=== PATIENT | female | born 1930 | race Caucasian/White ===

== ENCOUNTER 2019-01-03 08:44 | Inpatient (IN) | payer MEDICARE, OTHER ==
[~2019-01-03] VITALS: Ht 160 cm; Wt 100.4 kg
--- OUTSIDE RECORDS SUMMARY | 2019-01-03 08:47 | XMS REPORT ---
[facility] [place] Address Unknown Phone Unavailable Care Team Providers Care Hand Printed Circuit Board Assembler Name Role Phone Unavailable Unavailable Payers Payer Name Policy Type Policy Number Effective Date Expiration Date Problems This patient has no known problems. Allergies, Adverse Reactions, Alerts Allergy Name Allergy Type Status Severity Reaction(s) Onset Date Inactive Date Treating Clinician Comments diltiazem DA Active SV 2018-12-10 00:00:00 Medications This patient has no known medications. Results Test Description Test Time Test Comments Text Results Atomic Results Result Comments GLUBED 2018-12-18 11:59:00 GLUBED (test code=GLUBED) 146 mg/dL 74-106 Performed by certified protective signal operator at [facility] BASIC METABOLIC [id number] 10:40:00* Test Item Value Reference Range Comments SODIUM (test code=NA) 139 mmol/L 136-145 POTASSIUM (test code=K) 3.9 mmol/L 3.5-5.1 CHLORIDE (test code=CL) 105.0 mmol/L 98-107 CARBON DIOXIDE (test code=CO2) 25.0 mmol/L 21-32 ANION GAP (test code=GAP) 12.9 10-20 GLUCOSE (test code=GLU) 133 mg/dL 74-106 BLOOD UREA NITROGEN (test code=BUN) 29 mg/dL 7-18 GLOMERULAR FILTRATION RATE (test code=GFR) 28 mL/min >=60 Estimated GFR by using Modified MDRD formula.Chronic kidney disease is defined as either kidney damageor GFR <60 mL/min/1.73 m2 for >3 months. CREATININE (test code=CREAT) 1.70 mg/dL 0.55-1.02 Note change in reference range due to change in reagent. BUN/CREATININE RATIO (test code=BUN/CREA) 16.9 10-20 CALCIUM (test code=CA) 9.1 mg/dL 8.5-10.1 BASIC METABOLIC [id number] 10:36:00* Test Item Value Reference Range Comments SODIUM (test code=NA) 139 mmol/L 136-145 POTASSIUM (test code=K) 3.9 mmol/L 3.5-5.1 CHLORIDE (test code=CL) 105.0 mmol/L 98-107 CARBON DIOXIDE (test code=CO2) mmol/L 21-32 ANION GAP (test code=GAP) 10-20 GLUCOSE (test code=GLU) mg/dL 74-106 BLOOD UREA NITROGEN (test code=BUN) mg/dL 7-18 GLOMERULAR FILTRATION RATE (test code=GFR) mL/min >=60 CREATININE (test code=CREAT) mg/dL 0.55-1.02 BUN/CREATININE RATIO (test code=BUN/CREA) 10-20 CALCIUM (test code=CA) mg/dL 8.5-10.1 [id number] 08:02:00* Test Item Value Reference Range Comments GLUBED (test code=GLUBED) 105 mg/dL 74-106 Performed by certified protective signal operator at [facility] [id number] 19:49:00* Test Item Value Reference Range Comments GLUBED (test code=GLUBED) 183 mg/dL 74-106 Performed by certified protective signal operator at [facility] [id number] 16:10:00* Test Item Value Reference Range Comments GLUBED (test code=GLUBED) 168 mg/dL 74-106 Performed by certified protective signal operator at [facility] [id number] 11:32:00* Test Item Value Reference Range Comments GLUBED (test code=GLUBED) 126 mg/dL 74-106 Performed by certified protective signal operator at [facility] [id number] 08:14:00* Test Item Value Reference Range Comments GLUBED (test code=GLUBED) 109 mg/dL 74-106 Performed by certified protective signal operator at [facility] BASIC METABOLIC [id number] 05:54:00* Test Item Value Reference Range Comments SODIUM (test code=NA) 137 mmol/L 136-145 POTASSIUM (test code=K) 4.1 mmol/L 3.5-5.1 CHLORIDE (test code=CL) 104.0 mmol/L 98-107 CARBON DIOXIDE (test code=CO2) 25.0 mmol/L 21-32 ANION GAP (test code=GAP) 12.1 10-20 GLUCOSE (test code=GLU) 137 mg/dL 74-106 BLOOD UREA NITROGEN (test code=BUN) 31 mg/dL 7-18 GLOMERULAR FILTRATION RATE (test code=GFR) 25 mL/min >=60 Estimated GFR by using Modified MDRD formula.Chronic kidney disease is defined as either kidney damageor GFR <60 mL/min/1.73 m2 for >3 months. CREATININE (test code=CREAT) 1.90 mg/dL 0.55-1.02 Note change in reference range due to change in reagent. BUN/CREATININE RATIO (test code=BUN/CREA) 16.1 10-20 CALCIUM (test code=CA) 8.7 mg/dL 8.5-10.1 BASIC METABOLIC [id number] 05:42:00* Test Item Value Reference Range Comments SODIUM (test code=NA) 137 mmol/L 136-145 POTASSIUM (test code=K) 4.1 mmol/L 3.5-5.1 CHLORIDE (test code=CL) 104.0 mmol/L 98-107 CARBON DIOXIDE (test code=CO2) mmol/L 21-32 ANION GAP (test code=GAP) 10-20 GLUCOSE (test code=GLU) mg/dL 74-106 BLOOD UREA NITROGEN (test code=BUN) mg/dL 7-18 GLOMERULAR FILTRATION RATE (test code=GFR) mL/min >=60 CREATININE (test code=CREAT) mg/dL 0.55-1.02 BUN/CREATININE RATIO (test code=BUN/CREA) 10-20 CALCIUM (test code=CA) mg/dL 8.5-10.1 [id number] 21:03:00* Test Item Value Reference Range Comments GLUBED (test code=GLUBED) 137 mg/dL 74-106 Performed by certified protective signal operator at [facility] [id number] 17:04:00* Test Item Value Reference Range Comments GLUBED (test code=GLUBED) 103 mg/dL 74-106 Performed by certified protective signal operator at [facility] [id number] 12:26:00* Test Item Value Reference Range Comments GLUBED (test code=GLUBED) 125 mg/dL 74-106 Performed by certified protective signal operator at [facility] [id number] 08:14:00* Test Item Value Reference Range Comments GLUBED (test code=GLUBED) 103 mg/dL 74-106 Performed by certified protective signal operator at [facility] BLOOD UREA [id number] 05:17:00* Test Item Value Reference Range Comments BLOOD UREA NITROGEN (test code=BUN) 32 mg/dL 718 [id number] 05:17:00* Test Item Value Reference Range Comments CREATININE (test code=CREAT) 2.10 mg/dL 0.55-1.02 Note change in reference range due to change in reagent. [id number] 20:44:00* Test Item Value Reference Range Comments GLUBED (test code=GLUBED) 143 mg/dL 74-106 Performed by certified protective signal operator at [facility] [id number] 17:23:00* Test Item Value Reference Range Comments GLUBED (test code=GLUBED) 116 mg/dL 74-106 Performed by certified protective signal operator at [facility] [id number] 12:16:00* Test Item Value Reference Range Comments GLUBED (test code=GLUBED) 168 mg/dL 74-106 Performed by certified protective signal operator at [facility] [id number] 08:35:00* Test Item Value Reference Range Comments GLUBED (test code=GLUBED) 104 mg/dL 74-106 Performed by certified protective signal operator at [facility] PROTHROMBIN [id number] 06:43:00* Test Item Value Reference Range Comments PROTHROMBIN TIME PATIENT (test code=PTP) 13.4 seconds 9.0-14.0 INTERNATIONAL NORMAL RATIO (test code=INR) 1.1 0.8-1.2 The therapeutic range for oral anticoagulant therapy formost indications is an international normalized ratio (INR)of between 2.0 and 3.0. The recommended therapeutic INRrange for various clinical situations is listed below: Clinical Situation INR range Pulmonary e mbolism treatment (2.0-3.0)Venous thrombosis treatmentVenous thrombosis prophylaxis (high risk surgery)Prevention of systemic embolism from: Acute myocardial infarction Valvular heart disease Atrial fibrillation Mechanical prosthetic heart valves (2.5-3.5) IS PATIENT ON ANTICOAGULANTS? YLIST ANTICOAGULANTS COUMADINCBC W/AUTO DIFF 2018-12-15 06:41:00* Test Item Value Reference Range Comments WHITE BLOOD CELL (test code=WBC) 8.1 K/mm3 4.5-12.5 RED BLOOD CELL (test code=RBC) 3.72 mill/mm3 3.7-5.2 HEMOGLOBIN (test code=HGB) 10.1 gram/dL 11.5-15.5 HEMATOCRIT (test code=HCT) 33.2 % 36.0-46.0 MEAN CELL VOLUME (test code=MCV) 89.2 fL 80-98 MEAN CELL HGB (test code=MCH) 27.2 picogram 27.0-33.0 MEAN CELL HGB CONCETRATION (test code=MCHC) 30.4 gram/dL 33.0-36.0 RED CELL DISTRIBUTION WIDTH (test code=RDW) 16.3 % 11.6-16.2 RED CELL DISTRIBUTION WIDTH SD (test code=RDW-SD) 52.2 fL 37.0-51.0 PLATELET COUNT (test code=PLT) 212 K/mm3 150-450 MEAN PLATELET VOLUME (test code=MPV) 9.9 fL 6.7-11.0 NEUTROPHIL % (test code=NT%) 63.5 % 39.0-69.0 IMMATURE GRANULOCYTE % (test code=IG%) 1.1 % 0.0-5.0 LYMPHOCYTE % (test code=LY%) 17.6 % 25.0-55.0 MONOCYTE % (test code=MO%) 15.2 % 0.0-10.0 EOSINOPHIL % (test code=EO%) 1.9 % 0.0-5.0 BASOPHIL % (test code=BA%) 0.7 % 0.0-1.0 NUCLEATED RBC % (test code=NRBC%) 0.0 % 0-0 NEUTROPHIL # (test code=NT#) 5.13 K/mm3 1.8-7.7 IMMATURE GRANULOCYTE # (test code=IG#) 0.09 x10 3/uL 0-0.03 LYMPHOCYTE # (test code=LY#) 1.42 K/mm3 1.0-5.0 MONOCYTE # (test code=MO#) 1.23 K/mm3 0-0.8 EOSINOPHIL # (test code=EO#) 0.15 K/mm3 0.0-0.5 BASOPHIL # (test code=BA#) 0.06 K/mm3 0.0-0.2 NUCLEATED RBC # (test code=NRBC#) 0.00 K/mm3 0.0-0.1 MANUAL DIFF REQUIRED (test code=MDIFF) NO BASIC METABOLIC [id number] 06:21:00* Test Item Value Reference Range Comments SODIUM (test code=NA) 137 mmol/L 136-145 POTASSIUM (test code=K) 3.9 mmol/L 3.5-5.1 CHLORIDE (test code=CL) 102.0 mmol/L 98-107 CARBON DIOXIDE (test code=CO2) 27.0 mmol/L 21-32 ANION GAP (test code=GAP) 11.9 10-20 GLUCOSE (test code=GLU) 107 mg/dL 74-106 BLOOD UREA NITROGEN (test code=BUN) 36 mg/dL 7-18 GLOMERULAR FILTRATION RATE (test code=GFR) 25 mL/min >=60 Estimated GFR by using Modified MDRD formula.Chronic kidney disease is defined as either kidney damageor GFR <60 mL/min/1.73 m2 for >3 months. CREATININE (test code=CREAT) 1.90 mg/dL 0.55-1.02 Note change in reference range due to change in reagent. BUN/CREATININE RATIO (test code=BUN/CREA) 19.3 10-20 CALCIUM (test code=CA) 8.7 mg/dL 8.5-10.1 BASIC METABOLIC [id number] 06:15:00* Test Item Value Reference Range Comments SODIUM (test code=NA) 137 mmol/L 136-145 POTASSIUM (test code=K) 3.9 mmol/L 3.5-5.1 CHLORIDE (test code=CL) 102.0 mmol/L 98-107 CARBON DIOXIDE (test code=CO2) mmol/L 21-32 ANION GAP (test code=GAP) 10-20 GLUCOSE (test code=GLU) mg/dL 74-106 BLOOD UREA NITROGEN (test code=BUN) mg/dL 7-18 GLOMERULAR FILTRATION RATE (test code=GFR) mL/min >=60 CREATININE (test code=CREAT) mg/dL 0.55-1.02 BUN/CREATININE RATIO (test code=BUN/CREA) 10-20 CALCIUM (test code=CA) mg/dL 8.5-10.1 [id number] 21:18:00* Test Item Value Reference Range Comments GLUBED (test code=GLUBED) 175 mg/dL 74-106 Performed by certified protective signal operator at [facility] [id number] 16:25:00* Test Item Value Reference Range Comments GLUBED (test code=GLUBED) 118 mg/dL 74-106 Performed by certified protective signal operator at [facility] [id number] 12:18:00* Test Item Value Reference Range Comments GLUBED (test code=GLUBED) 100 mg/dL 74-106 Performed by certified protective signal operator at [facility] [id number] 08:18:00* Test Item Value Reference Range Comments GLUBED (test code=GLUBED) 94 mg/dL 74-106 Performed by certified protective signal operator at [facility] PROTHROMBIN [id number] 06:04:00* Test Item Value Reference Range Comments PROTHROMBIN TIME PATIENT (test code=PTP) 15.9 seconds 9.0-14.0 INTERNATIONAL NORMAL RATIO (test code=INR) 1.3 0.8-1.2 The therapeutic range for oral anticoagulant therapy formost indications is an international normalized ratio (INR)of between 2.0 and 3.0. The recommended therapeutic INRrange for various clinical situations is listed below: Clinical Situation INR range Pulmonary e mbolism treatment (2.0-3.0)Venous thrombosis treatmentVenous thrombosis prophylaxis (high risk surgery)Prevention of systemic embolism from: Acute myocardial infarction Valvular heart disease Atrial fibrillation Mechanical prosthetic heart valves (2.5-3.5) IS PATIENT ON ANTICOAGULANTS? YLIST ANTICOAGULANTS COUMADINCOMPREHENSIVE METABOLIC [id number] 06:04:00* Test Item Value Reference Range Comments SODIUM (test code=NA) 139 mmol/L 136-145 POTASSIUM (test code=K) 4.0 mmol/L 3.5-5.1 CHLORIDE (test code=CL) 106.0 mmol/L 98-107 CARBON DIOXIDE (test code=CO2) 24.0 mmol/L 21-32 ANION GAP (test code=GAP) 13.0 10-20 GLUCOSE (test code=GLU) 99 mg/dL 74-106 BLOOD UREA NITROGEN (test code=BUN) 31 mg/dL 7-18 GLOMERULAR FILTRATION RATE (test code=GFR) 30 mL/min >=60 Estimated GFR by using Modified MDRD formula.Chronic kidney disease is defined as either kidney damageor GFR <60 mL/min/1.73 m2 for >3 months. CREATININE (test code=CREAT) 1.60 mg/dL 0.55-1.02 Note change in reference range due to change in reagent. BUN/CREATININE RATIO (test code=BUN/CREA) 18.9 10-20 TOTAL PROTEIN (test code=PROT) 5.8 gram/dL 6.4-8.2 ALBUMIN (test code=ALB) 2.4 g/dL 3.4-5.0 GLOBULIN (test code=GLOB) 3.4 gram/dL 2.7-4.2 ALBUMIN/GLOBULIN RATIO (test code=A/G) 0.7 0.75-1.50 CALCIUM (test code=CA) 8.4 mg/dL 8.5-10.1 BILIRUBIN TOTAL (test code=BILT) 0.50 mg/dL 0.0-1.0 SGOT/AST (test code=AST) 25 IUnit/L 15-37 SGPT/ALT (test code=ALT) 13 IUnit/L 12-78 ALKALINE PHOSPHATASE TOTAL (test code=ALKP) 112 IUnit/L 45-117 Note change in reference range due to change in reagent. CBC W/AUTO [id number] 05:56:00* Test Item Value Reference Range Comments WHITE BLOOD CELL (test code=WBC) 6.9 K/mm3 4.5-12.5 RED BLOOD CELL (test code=RBC) 3.65 mill/mm3 3.7-5.2 HEMOGLOBIN (test code=HGB) 10.1 gram/dL 11.5-15.5 HEMATOCRIT (test code=HCT) 32.3 % 36.0-46.0 MEAN CELL VOLUME (test code=MCV) 88.5 fL 80-98 MEAN CELL HGB (test code=MCH) 27.7 picogram 27.0-33.0 MEAN CELL HGB CONCETRATION (test code=MCHC) 31.3 gram/dL 33.0-36.0 RED CELL DISTRIBUTION WIDTH (test code=RDW) 16.2 % 11.6-16.2 RED CELL DISTRIBUTION WIDTH SD (test code=RDW-SD) 52.6 fL 37.0-51.0 PLATELET COUNT (test code=PLT) 201 K/mm3 150-450 MEAN PLATELET VOLUME (test code=MPV) 10.0 fL 6.7-11.0 NEUTROPHIL % (test code=NT%) 60.2 % 39.0-69.0 IMMATURE GRANULOCYTE % (test code=IG%) 0.7 % 0.0-5.0 LYMPHOCYTE % (test code=LY%) 22.4 % 25.0-55.0 MONOCYTE % (test code=MO%) 13.5 % 0.0-10.0 EOSINOPHIL % (test code=EO%) 2.6 % 0.0-5.0 BASOPHIL % (test code=BA%) 0.6 % 0.0-1.0 NUCLEATED RBC % (test code=NRBC%) 0.0 % 0-0 NEUTROPHIL # (test code=NT#) 4.13 K/mm3 1.8-7.7 IMMATURE GRANULOCYTE # (test code=IG#) 0.05 x10 3/uL 0-0.03 LYMPHOCYTE # (test code=LY#) 1.54 K/mm3 1.0-5.0 MONOCYTE # (test code=MO#) 0.93 K/mm3 0-0.8 EOSINOPHIL # (test code=EO#) 0.18 K/mm3 0.0-0.5 BASOPHIL # (test code=BA#) 0.04 K/mm3 0.0-0.2 NUCLEATED RBC # (test code=NRBC#) 0.00 K/mm3 0.0-0.1 MANUAL DIFF REQUIRED (test code=MDIFF) NO COMPREHENSIVE METABOLIC [id number] 05:54:00* Test Item Value Reference Range Comments SODIUM (test code=NA) 139 mmol/L 136-145 POTASSIUM (test code=K) 4.0 mmol/L 3.5-5.1 CHLORIDE (test code=CL) 106.0 mmol/L 98-107 CARBON DIOXIDE (test code=CO2) mmol/L 21-32 ANION GAP (test code=GAP) 10-20 GLUCOSE (test code=GLU) mg/dL 74-106 BLOOD UREA NITROGEN (test code=BUN) mg/dL 7-18 GLOMERULAR FILTRATION RATE (test code=GFR) mL/min >=60 CREATININE (test code=CREAT) mg/dL 0.55-1.02 BUN/CREATININE RATIO (test code=BUN/CREA) 10-20 TOTAL PROTEIN (test code=PROT) gram/dL 6.4-8.2 ALBUMIN (test code=ALB) g/dL 3.4-5.0 GLOBULIN (test code=GLOB) gram/dL 2.7-4.2 ALBUMIN/GLOBULIN RATIO (test code=A/G) 0.75-1.50 CALCIUM (test code=CA) mg/dL 8.5-10.1 BILIRUBIN TOTAL (test code=BILT) mg/dL 0.0-1.0 SGOT/AST (test code=AST) IUnit/L 15-37 SGPT/ALT (test code=ALT) IUnit/L 12-78 ALKALINE PHOSPHATASE TOTAL (test code=ALKP) IUnit/L 45-117 [id number] 20:59:00* Test Item Value Reference Range Comments GLUBED (test code=GLUBED) 150 mg/dL 74-106 [facility] certified [facility] [id number] 16:08:00* Test Item Value Reference Range Comments GLUBED (test code=GLUBED) 152 mg/dL 74-106 Performed by certified protective signal operator at [facility] [id number] 11:38:00* Test Item Value Reference Range Comments GLUBED (test code=GLUBED) 132 mg/dL 74-106 Performed by certified protective signal operator at [facility] [id number] 08:10:00* Test Item Value Reference Range Comments GLUBED (test code=GLUBED) 115 mg/dL 74-106 Performed by certified protective signal operator at [facility] [id number] 06:18:00* Test Item Value Reference Range Comments MAGNESIUM (test code=MAG) 1.6 mg/dL 1.8-2.4 BASIC METABOLIC [id number] 06:18:00* Test Item Value Reference Range Comments SODIUM (test code=NA) 140 mmol/L 136-145 POTASSIUM (test code=K) 4.1 mmol/L 3.5-5.1 CHLORIDE (test code=CL) 107.0 mmol/L 98-107 CARBON DIOXIDE (test code=CO2) 25.0 mmol/L 21-32 ANION GAP (test code=GAP) 12.1 10-20 GLUCOSE (test code=GLU) 109 mg/dL 74-106 BLOOD UREA NITROGEN (test code=BUN) 31 mg/dL 7-18 GLOMERULAR FILTRATION RATE (test code=GFR) 33 mL/min >=60 Estimated GFR by using Modified MDRD formula.Chronic kidney disease is defined as either kidney damageor GFR <60 mL/min/1.73 m2 for >3 months. CREATININE (test code=CREAT) 1.50 mg/dL 0.55-1.02 Note change in reference range due to change in reagent. BUN/CREATININE RATIO (test code=BUN/CREA) 20.5 10-20 CALCIUM (test code=CA) 8.8 mg/dL 8.5-10.1 BASIC METABOLIC [id number] 06:10:00* Test Item Value Reference Range Comments SODIUM (test code=NA) 140 mmol/L 136-145 POTASSIUM (test code=K) 4.1 mmol/L 3.5-5.1 CHLORIDE (test code=CL) 107.0 mmol/L 98-107 CARBON DIOXIDE (test code=CO2) mmol/L 21-32 ANION GAP (test code=GAP) 10-20 GLUCOSE (test code=GLU) mg/dL 74-106 BLOOD UREA NITROGEN (test code=BUN) mg/dL 7-18 GLOMERULAR FILTRATION RATE (test code=GFR) mL/min >=60 CREATININE (test code=CREAT) mg/dL 0.55-1.02 BUN/CREATININE RATIO (test code=BUN/CREA) 10-20 CALCIUM (test code=CA) mg/dL 8.5-10.1 [id number] 20:59:00* Test Item Value Reference Range Comments GLUBED (test code=GLUBED) 126 mg/dL 74-106 Performed by certified protective signal operator at [facility] [id number] 13:02:00* Test Item Value Reference Range Comments GLUBED (test code=GLUBED) 116 mg/dL 74-106 [facility] by certified protective signal operator [facility] [id number] 08:18:00* Test Item Value Reference Range Comments GLUBED (test code=GLUBED) 94 mg/dL 74-106 Performed by certified protective signal operator at [facility] BASIC METABOLIC [id number] 07:44:00* Test Item Value Reference Range Comments SODIUM (test code=NA) 141 mmol/L 136-145 POTASSIUM (test code=K) 4.7 mmol/L 3.5-5.1 CHLORIDE (test code=CL) 109.0 mmol/L 98-107 CARBON DIOXIDE (test code=CO2) 23.0 mmol/L 21-32 ANION GAP (test code=GAP) 13.7 10-20 GLUCOSE (test code=GLU) 101 mg/dL 74-106 BLOOD UREA NITROGEN (test code=BUN) 34 mg/dL 7-18 GLOMERULAR FILTRATION RATE (test code=GFR) 33 mL/min >=60 Estimated GFR by using Modified MDRD formula.Chronic kidney disease is defined as either kidney damageor GFR <60 mL/min/1.73 m2 for >3 months. CREATININE (test code=CREAT) 1.50 mg/dL 0.55-1.02 Note change in reference range due to change in reagent. BUN/CREATININE RATIO (test code=BUN/CREA) 22.4 10-20 CALCIUM (test code=CA) 8.9 mg/dL 8.5-10.1 [id number] 07:44:00* Test Item Value Reference Range Comments MAGNESIUM (test code=MAG) 1.7 mg/dL 1.8-2.4 FE W/TOTAL IRON BINDING CAP.2018-12-12 07:44:00* Test Item Value Reference Range Comments SERUM IRON (test code=IRON) 36 ug/dL 50-175 TOTAL IRON BINDING CAPACITY (test code=TIBC) 226 mcg/dL 250-450 IRON SATURATION (test code=FESAT) 15.93 % 13-45 [id number] 07:44:00* Test Item Value Reference Range Comments FERRITIN (test code=SARAY) 40 ng/mL 8-388 BASIC METABOLIC [id number] 07:22:00* Test Item Value Reference Range Comments SODIUM (test code=NA) 141 mmol/L 136-145 POTASSIUM (test code=K) 4.7 mmol/L 3.5-5.1 CHLORIDE (test code=CL) 109.0 mmol/L 98-107 CARBON DIOXIDE (test code=CO2) mmol/L 21-32 ANION GAP (test code=GAP) 10-20 GLUCOSE (test code=GLU) mg/dL 74-106 BLOOD UREA NITROGEN (test code=BUN) mg/dL 7-18 GLOMERULAR FILTRATION RATE (test code=GFR) mL/min >=60 CREATININE (test code=CREAT) mg/dL 0.55-1.02 BUN/CREATININE RATIO (test code=BUN/CREA) 10-20 CALCIUM (test code=CA) mg/dL 8.5-10.1 [id number] 07:22:00* Test Item Value Reference Range Comments MAGNESIUM (test code=MAG) mg/dL 1.8-2.4 FE W/TOTAL IRON BINDING CAP.2018-12-12 07:22:00* Test Item Value Reference Range Comments SERUM IRON (test code=IRON) ug/dL 50-175 TOTAL IRON BINDING CAPACITY (test code=TIBC) mcg/dL 250-450 IRON SATURATION (test code=FESAT) % 13-45 [id number] 07:22:00* Test Item Value Reference Range Comments FERRITIN (test code=SARAY) ng/mL 8-388 PROTHROMBIN [id number] 05:36:00* Test Item Value Reference Range Comments PROTHROMBIN TIME PATIENT (test code=PTP) 46.3 seconds 9.0-14.0 INTERNATIONAL NORMAL RATIO (test code=INR) 3.9 0.8-1.2 The therapeutic range for oral anticoagulant therapy formost indications is an international normalized ratio (INR)of between 2.0 and 3.0. The recommended therapeutic INRrange for various clinical situations is listed below: Clinical Situation INR range Pulmonary e mbolism treatment (2.0-3.0)Venous thrombosis treatmentVenous thrombosis prophylaxis (high risk surgery)Prevention of systemic embolism from: Acute myocardial infarction Valvular heart disease Atrial fibrillation Mechanical prosthetic heart valves (2.5-3.5) IS PATIENT ON ANTICOAGULANTS? YLIST ANTICOAGULANTS COUMADINTHROMBOPLASTIN TIME [id number] 05:36:00* Test Item Value Reference Range Comments THROMBOPLASTIN TIME PARTIAL (test code=PTT) 48.4 seconds 25.0-36.5 IS PATIENT ON ANTICOAGULANTS? YLIST ANTICOAGULANTS COUMADINCBC W/AUTO DIFF 2018-12-12 05:31:00* Test Item Value Reference Range Comments WHITE BLOOD CELL (test code=WBC) 5.6 K/mm3 4.5-12.5 RED BLOOD CELL (test code=RBC) 3.68 mill/mm3 3.7-5.2 HEMOGLOBIN (test code=HGB) 10.0 gram/dL 11.5-15.5 HEMATOCRIT (test code=HCT) 32.3 % 36.0-46.0 MEAN CELL VOLUME (test code=MCV) 87.8 fL 80-98 MEAN CELL HGB (test code=MCH) 27.2 picogram 27.0-33.0 MEAN CELL HGB CONCETRATION (test code=MCHC) 31.0 gram/dL 33.0-36.0 RED CELL DISTRIBUTION WIDTH (test code=RDW) 16.4 % 11.6-16.2 RED CELL DISTRIBUTION WIDTH SD (test code=RDW-SD) 52.9 fL 37.0-51.0 PLATELET COUNT (test code=PLT) 221 K/mm3 150-450 MEAN PLATELET VOLUME (test code=MPV) 10.3 fL 6.7-11.0 NEUTROPHIL % (test code=NT%) 58.1 % 39.0-69.0 IMMATURE GRANULOCYTE % (test code=IG%) 0.7 % 0.0-5.0 LYMPHOCYTE % (test code=LY%) 25.7 % 25.0-55.0 MONOCYTE % (test code=MO%) 12.1 % 0.0-10.0 EOSINOPHIL % (test code=EO%) 3.0 % 0.0-5.0 BASOPHIL % (test code=BA%) 0.4 % 0.0-1.0 NUCLEATED RBC % (test code=NRBC%) 0.0 % 0-0 NEUTROPHIL # (test code=NT#) 3.25 K/mm3 1.8-7.7 IMMATURE GRANULOCYTE # (test code=IG#) 0.04 x10 3/uL 0-0.03 LYMPHOCYTE # (test code=LY#) 1.44 K/mm3 1.0-5.0 MONOCYTE # (test code=MO#) 0.68 K/mm3 0-0.8 EOSINOPHIL # (test code=EO#) 0.17 K/mm3 0.0-0.5 BASOPHIL # (test code=BA#) 0.02 K/mm3 0.0-0.2 NUCLEATED RBC # (test code=NRBC#) 0.00 K/mm3 0.0-0.1 [id number] 21:06:00* Test Item Value Reference Range Comments GLUBED (test code=GLUBED) 124 mg/dL 74-106 Performed by certified protective signal operator at [facility] [id number] 17:08:00* Test Item Value Reference Range Comments GLUBED (test code=GLUBED) 129 mg/dL 74-106 [facility] [id number] 12:02:00* Test Item Value Reference Range Comments GLUBED (test code=GLUBED) 104 mg/dL 74-106 [facility] certified protective signal [facility] BASIC METABOLIC [id number] 10:55:00* Test Item Value Reference Range Comments SODIUM (test code=NA) 141 mmol/L 136-145 POTASSIUM (test code=K) 4.6 mmol/L 3.5-5.1 CHLORIDE (test code=CL) 110.0 mmol/L 98-107 CARBON DIOXIDE (test code=CO2) 23.0 mmol/L 21-32 ANION GAP (test code=GAP) 12.6 10-20 GLUCOSE (test code=GLU) 131 mg/dL 74-106 BLOOD UREA NITROGEN (test code=BUN) 42 mg/dL 7-18 GLOMERULAR FILTRATION RATE (test code=GFR) 27 mL/min >=60 Estimated GFR by using Modified MDRD formula.Chronic kidney disease is defined as either kidney damageor GFR <60 mL/min/1.73 m2 for >3 months. CREATININE (test code=CREAT) 1.80 mg/dL 0.55-1.02 Note change in reference range due to change in reagent. BUN/CREATININE RATIO (test code=BUN/CREA) 23.7 10-20 CALCIUM (test code=CA) 8.5 mg/dL 8.5-10.1 [id number] 10:55:00* Test Item Value Reference Range Comments TROPONIN-I (test code=TROPI) 0.019 ng/mL 0-0.045 COMMENTS TO CRYPTOGRAPHIC MACHINE OPERATOR: COLLECT 3 HOURS AFTER PREVIOUS SAMPLEBASIC METABOLIC [id number] 10:46:00* Test Item Value Reference Range Comments SODIUM (test code=NA) 141 mmol/L 136-145 POTASSIUM (test code=K) 4.6 mmol/L 3.5-5.1 CHLORIDE (test code=CL) 110.0 mmol/L 98-107 CARBON DIOXIDE (test code=CO2) mmol/L 21-32 ANION GAP (test code=GAP) 10-20 GLUCOSE (test code=GLU) mg/dL 74-106 BLOOD UREA NITROGEN (test code=BUN) mg/dL 7-18 GLOMERULAR FILTRATION RATE (test code=GFR) mL/min >=60 CREATININE (test code=CREAT) mg/dL 0.55-1.02 BUN/CREATININE RATIO (test code=BUN/CREA) 10-20 CALCIUM (test code=CA) 8.5 mg/dL 8.5-10.1 [id number] 09:16:00* Test Item Value Reference Range Comments GLUBED (test code=GLUBED) 134 mg/dL 74-106 [facility] certified [facility] [id number] 09:16:00* Test Item Value Reference Range Comments TROPONIN-I (test code=TROPI) 0.016 ng/mL 0-0.045 COMMENTS TO CRYPTOGRAPHIC MACHINE OPERATOR: COLLECT 3 HOURS AFTER PREVIOUS SAMPLE [id number] 20:28:00* Test Item Value Reference Range Comments GLUBED (test code=GLUBED) 147 mg/dL 74-106 Performed by certified protective signal operator at [facility] [id number] 17:12:00* Test Item Value Reference Range Comments GLUBED (test code=GLUBED) 105 mg/dL 74-106 Performed by certified protective signal operator [facility] LACTIC [id number] 16:25:00* Test Item Value Reference Range Comments LACTIC ACID (test code=LACT) 1.2 MMOL/L 0.4-1.9 URINALYSIS [id number] 15:11:00* Test Item Value Reference Range Comments UA COLOR (test code=COLU) YELLOW YELLOW UA APPEARANCE (test code=APPU) SLIGHTLY CLOUDY CLEAR UA GLUCOSE DIPSTICK (test code=DGLUU) norm mg/dL NEGATIVE UA BILIRUBIN DIPSTICK (test code=BILU) NEGATIVE mg/dL NEGATIVE UA KETONE DIPSTICK (test code=KETU) neg mg/dL NEGATIVE UA SPECIFIC GRAVITY (test code=SGU) 1.015 1.001-1.035 UA BLOOD DIPSTICK (test code=RITU) 10 (Trace) [place]/uL NEGATIVE UA PH DIPSTICK (test code=BERKLEY) 5.0 5.0-8.0 UA PROTEIN DIPSTICK (test code=PROU) 15 (TRACE) mg/dL Neg-15 UA UROBILINIOGEN DIPSTICK (test code=URO) 1 mg/dL 0.0-0.2 UA NITRITE DIPSTICK (test code=MICEHLLE) POSITIVE NEGATIVE UA LEUKOCYTE ESTERASE DIPSTICK (test code=LEUU) 25 Justus/uL (Trace) uL NEGATIVE UA WBC (test code=WBCU) 3-5 per HPF 0-5 UA RBC (test code=RBCU) 0-3 per HPF 0-5 UA EPITHELIAL CELLS (test code=EPIU) Few (2-5/hpf) per HPF Few UA BACTERIA (test code=BACU) MANY per HPF NONE Urine Source? Clean CatchPROTHROMBIN [id number] 15:11:00* Test Item Value Reference Range Comments PROTHROMBIN TIME PATIENT (test code=PTP) > 110.0 seconds 9.0-13.[address] HODGES by [email or web address] 12/10/18 1510Read back (patient name and result) requested? Y INTERNATIONAL NORMAL RATIO (test code=INR) > 5.0 0.8-1.[address] HODGES by [email or web address] 12/10/18 1510Read back (patient name and result) requested? Y IS PATIENT ON ANTICOAGULANTS? YLIST ANTICOAGULANTS COUMADINTHROMBOPLASTIN TIME [id number] 15:11:00* Test Item Value Reference Range Comments THROMBOPLASTIN TIME PARTIAL (test code=PTT) 61.0 seconds 25.5-34.3 Therapeutic Range for patients on Heparin Therapy is 2 to2.5 times their baseline PTT level. IS PATIENT ON ANTICOAGULANTS? YLIST ANTICOAGULANTS [id number] 15:11:00* Test Item Value Reference Range Comments D-DIMER (test code=DDIMER) 294 ng/ml < 600 IS PATIENT ON ANTICOAGULANTS? YLIST ANTICOAGULANTS COUMADINURINALYSIS COMPLETE 2018-12-10 15:02:00* Test Item Value Reference Range Comments UA COLOR (test code=COLU) YELLOW YELLOW UA APPEARANCE (test code=APPU) SLIGHTLY CLOUDY CLEAR UA GLUCOSE DIPSTICK (test code=DGLUU) norm mg/dL NEGATIVE UA BILIRUBIN DIPSTICK (test code=BILU) NEGATIVE mg/dL NEGATIVE UA KETONE DIPSTICK (test code=KETU) neg mg/dL NEGATIVE UA SPECIFIC GRAVITY (test code=SGU) 1.015 1.001-1.035 UA BLOOD DIPSTICK (test code=RITU) 10 (Trace) [place]/uL NEGATIVE UA PH DIPSTICK (test code=BERKLEY) 5.0 5.0-8.0 UA PROTEIN DIPSTICK (test code=PROU) 15 (TRACE) mg/dL Neg-15 UA UROBILINIOGEN DIPSTICK (test code=URO) 1 mg/dL 0.0-0.2 UA NITRITE DIPSTICK (test code=MICHELLE) POSITIVE NEGATIVE UA LEUKOCYTE ESTERASE DIPSTICK (test code=LEUU) 25 Justus/uL (Trace) uL NEGATIVE UA WBC (test code=WBCU) per HPF 0-5 UA RBC (test code=RBCU) per HPF 0-5 UA EPITHELIAL CELLS (test code=EPIU) per HPF Few UA BACTERIA (test code=BACU) per HPF NONE Urine Source? Clean Catch- XR CHEST 1 [id number] 14:46:00 [facility] 1930 Age/S:88 /F [address] [facility] Unit#:[id number] Loc: [place] [address] Phys: Dori Hodges MD Dis Date: PHONE #: [phone] Status: REG ER FAX #: [phone] Exam Date: 12/10/2018 Reason: sOB EXAMS: CPT CODE: [id number] XR CHEST 1 V [id number] REASON FOR EXAM: sOB EXAM ORDER DATE: 12/10/2018 1:33 PM Ordering Edd: Dori Hodges MD PROCEDURE: - XR CHEST 1 V COMPARISON: FINDINGS: Portable AP frontal view of the chest obtained at 2:31 PM shows clear lungs without evidence of consolidation. There is no evidence of effusion. The heart size is within normal limits. Pulmonary vasculatures are unremarkable. IMPRESSION: No active disease. at 1446 Reported and signed by: Patrick Mcdaniel M.D. CC: Kasey Vegas MD; Slick Medina; Dori Hodges MD Technologist: Shantell Benton RDNV Trnscrpt Data: 12/10/2018 ([id number]) Amadou STREETER Orig Print D/T: S: 12/10/2018 (0524) PAGE 1 Signed Report - XR FOREARM 2 VIEWS [id number] 14:45:00 Name: LORENZO CHOWDARY [facility] : 1930 Age/S:88 /F [address] [facility] Unit#:[id number] Loc: [place] [address] Phys: Dori Hodges MD Dis Date: PHONE #: [phone] Status: REG ER FAX #: [phone] Exam Date: 12/10/2018 Reason: ecchymosis eval for fx EXAMS: CPT CODE: [id number] XR [place] [address] [place] [id number] REASON FOR EXAM: ecchymosis eval for fx EXAM ORDER DATE: 12/10/2018 1:34 PM Ordering M.D.: Dori Hodges MD PROCEDURE: - XR FOREARM 2 VIEWS LT FINDINGS: 2 views of the left forearm were obtained. The osseous structures are unremarkable in size and shape. The joint spaces are maintained. No evidence of fracture. IMPRESSION: Unremarkable left radius and ulna at 1445 Reported and signed by: Patrick Mcdaniel M.D. CC: Kasey Quiroga MD; Slick Medina; Dori Hernandez MD Technologist: Shantell Benton RDNV Trnscrpt Data: 12/10/2018 ([id number]) Redd Orig Print D/T: S: 12/10/2018 (9024) PAGE 1 Signed Report LACTIC [id number] 14:36:00* Test Item Value Reference Range Comments LACTIC ACID (test code=LACT) 2.2 MMOL/L 0.4-1.9 Results called to [id number] Redd V.LAB.CD 12/10/18 1435Critical results verified and read back by Nurse? Y COMPREHENSIVE METABOLIC [id number] 14:26:00* Test Item Value Reference Range Comments SODIUM (test code=NA) 139 mmol/L 136-145 POTASSIUM (test code=K) 4.9 mmol/L 3.5-5.1 CHLORIDE (test code=CL) 106 mmol/L 101-109 CARBON DIOXIDE (test code=CO2) 22.1 mmol/L 21-32 ANION GAP (test code=GAP) 16 mmol/L 10-20 GLUCOSE (test code=GLU) 153 mg/dL 74-106 BLOOD UREA NITROGEN (test code=BUN) 53 mg/dL 3-21 CREATININE (test code=CREAT) 2.06 mg/dL 0.55-1.3 BUN/CREATININE RATIO (test code=BUN/CREA) 25.7 10-20 TOTAL PROTEIN (test code=PROT) 6.2 g/dL 6.5-8.4 ALBUMIN (test code=ALB) 2.9 g/dL 3.4-4.8 GLOBULIN (test code=GLOB) 3.3 G/DL 1-10 ALBUMIN/GLOBULIN RATIO (test code=A/G) 0.88 RATIO 0.75-1.50 CALCIUM (test code=CA) 8.6 mg/dL 8.4-10.2 BILIRUBIN TOTAL (test code=BILT) 0.50 mg/dL 0.0-1.0 SGOT/AST (test code=AST) 25 U/L 6-32 SGPT/ALT (test code=ALT) 12 U/L 12-78 Note: Change in REFERENCE RANGE due to new reagent method. ALKALINE PHOSPHATASE TOTAL (test code=ALKP) 114 U/L 38-126 [id number] 14:26:00* Test Item Value Reference Range Comments MAGNESIUM (test code=MAG) 1.5 mg/dL 1.6-2.3 CPK-MB [id number] 14:26:00* Test Item Value Reference Range Comments CREATINE KINASE (CK) (test code=CK) 38 U/L 26-192 CKMB (test code=CKMBT) <0.5 ng/mL 0.0-5.0 RELATIVE % INDEX (test code=REL%) 1.3 % [id number] 14:26:00* Test Item Value Reference Range Comments TROPONIN-I (test code=TROPI) <0.015 ng/mL 0.00-0.056 B-TYPE NATRIURETIC [id number] 14:10:00* Test Item Value Reference Range Comments B-TYPE NATRIURETIC PEPTIDE (test code=BNP) 68.8 pg/mL 0-100 PROTHROMBIN [id number] 14:05:00* Test Item Value Reference Range Comments PROTHROMBIN TIME PATIENT (test code=PTP) seconds 9.0-13.0 INTERNATIONAL NORMAL RATIO (test code=INR) 0.8-1.2 IS PATIENT ON ANTICOAGULANTS? YLIST ANTICOAGULANTS COUMADINTHROMBOPLASTIN TIME [id number] 14:05:00* Test Item Value Reference Range Comments THROMBOPLASTIN TIME PARTIAL (test code=PTT) seconds 25.5-34.3 IS PATIENT ON ANTICOAGULANTS? YLIST ANTICOAGULANTS [id number] 14:05:00* Test Item Value Reference Range Comments D-DIMER (test code=DDIMER) 294 ng/ml < 600 IS PATIENT ON ANTICOAGULANTS? YLIST ANTICOAGULANTS COUMADINCOMPREHENSIVE METABOLIC [id number] 14:03:00* Test Item Value Reference Range Comments SODIUM (test code=NA) 139 mmol/L 136-145 POTASSIUM (test code=K) 4.9 mmol/L 3.5-5.1 CHLORIDE (test code=CL) 106 mmol/L 101-109 CARBON DIOXIDE (test code=CO2) 22.1 mmol/L 21-32 ANION GAP (test code=GAP) 16 mmol/L 10-20 GLUCOSE (test code=GLU) 153 mg/dL 74-106 BLOOD UREA NITROGEN (test code=BUN) 53 mg/dL 3-21 CREATININE (test code=CREAT) 2.06 mg/dL 0.55-1.3 BUN/CREATININE RATIO (test code=BUN/CREA) 25.7 10-20 TOTAL PROTEIN (test code=PROT) gram/dL 6.4-8.2 ALBUMIN (test code=ALB) g/dL 3.4-5.0 GLOBULIN (test code=GLOB) g/dL 2.7-4.2 ALBUMIN/GLOBULIN RATIO (test code=A/G) 0.75-1.50 CALCIUM (test code=CA) 8.6 mg/dL 8.4-10.2 BILIRUBIN TOTAL (test code=BILT) mg/dL 0.2-1.2 SGOT/AST (test code=AST) IUnit/L 15-37 SGPT/ALT (test code=ALT) U/L 10-69 ALKALINE PHOSPHATASE TOTAL (test code=ALKP) IUnit/L 45-117 [id number] 14:03:00* Test Item Value Reference Range Comments MAGNESIUM (test code=MAG) mg/dL 1.8-2.4 CPK-MB [id number] 14:03:00* Test Item Value Reference Range Comments CREATINE KINASE (CK) (test code=CK) IUnit/L 26-208 CKMB (test code=CKMBT) ng/mL 0-6.0 RELATIVE % INDEX (test code=REL%) % [id number] 14:03:00* Test Item Value Reference Range Comments TROPONIN-I (test code=TROPI) ng/mL 0-0.045 CBC W/AUTO [id number] 13:54:00* Test Item Value Reference Range Comments WHITE BLOOD CELL (test code=WBC) 5.7 K/mm3 4.5-12.5 RED BLOOD CELL (test code=RBC) 3.61 mill/mm3 3.7-5.2 HEMOGLOBIN (test code=HGB) 9.8 gram/dL 11.5-15.5 HEMATOCRIT (test code=HCT) 32.3 % 36.0-46.0 MEAN CELL VOLUME (test code=MCV) 89.5 fL 80-98 MEAN CELL HGB (test code=MCH) 27.1 picogram 27.0-33.0 MEAN CELL HGB CONCETRATION (test code=MCHC) 30.3 gram/dL 33.0-36.0 RED CELL DISTRIBUTION WIDTH (test code=RDW) 15.9 % 11.6-16.2 RED CELL DISTRIBUTION WIDTH SD (test code=RDW-SD) 52.5 fL 37.0-51.0 PLATELET COUNT (test code=PLT) 214 K/mm3 150-450 MEAN PLATELET VOLUME (test code=MPV) 9.5 fL 6.7-11.0 NEUTROPHIL % (test code=NT%) 61.2 % 39.0-69.0 LYMPHOCYTE % (test code=LY%) 24.0 % 25.0-55.0 MONOCYTE % (test code=MO%) 11.9 % 0.0-10.0 EOSINOPHIL % (test code=EO%) 1.8 % 0.0-5.0 BASOPHIL % (test code=BA%) 0.7 % 0.0-1.0 NEUTROPHIL # (test code=NT#) 3.49 K/mm3 1.8-7.7 LYMPHOCYTE # (test code=LY#) 1.37 K/mm3 1.0-5.0 MONOCYTE # (test code=MO#) 0.68 K/mm3 0-0.8 EOSINOPHIL # (test code=EO#) 0.10 K/mm3 0.0-0.5 BASOPHIL # (test code=BA#) 0.04 K/mm3 0.0-0.2 MANUAL DIFF REQUIRED (test code=MDIFF) NO
--- OUTSIDE RECORDS SUMMARY | 2019-01-03 08:47 | XMS REPORT | Summary of Care ---
Author Author USAMA EM M.D. Organization Unknown Address Unknown Phone Unavailable Care Team Providers Care Costume Cutter Name Role Phone USAMA EM M.D. Unavailable Unavailable Dolly Hernandez M.A. Unavailable Unavailable NAYLA ANGLIN M.D. Unavailable Unavailable QUANG ELMORE DO Unavailable Unavailable Unavailable Unavailable Functional Status Name Dates Details Functional status health issues are not documented Status: Name Dates Details Cognitive status health issues are not documented Status: Problems Name Dates Details Coronary artery disease (414.00, I25.10) Status: Active Diabetes mellitus (250.00, E11.9) Status: Active EKG, abnormal (794.31, R94.31) Status: Active Hyperlipidemia (272.4, E78.5) Status: Active Hypertension (401.9, I10) Status: Active Paroxysmal atrial fibrillation (427.31, I48.0) Status: Active Medications Name Dates Details Aspirin 81 MG TABS TAKE 1 TABLET DAILY. Active Atorvastatin Calcium 20 MG Oral Tablet TAKE 1 TABLET DAILY AT BEDTIME. * Quantity: 1 Refills: 0 USAMA EM M.D. Active Diovan 80 MG Oral Tablet TAKE 1 TABLET DAILY. * Refills: 0 Active Pioglitazone HCl - 30 MG Oral Tablet TAKE 1 TABLET ONCE DAILY. * Refills: 0 Active Metoprolol Tartrate 100 MG Oral Tablet TAKE 1 TABLET ONCE IN THE MORNING AND TWICE AT NIGHT. * Refills: 0 Active Nitroglycerin 0.4 MG Sublingual Tablet Sublingual PLACE 1 TABLET UNDER THE TONGUE EVERY 5 MINUTES UP TO 3 DOSES NEEDED FOR CHES T PAIN. * Quantity: 25 Refills: 0 USAMA EM M.D. * Start : 25-Sep-2016 Active Warfarin Sodium 3 MG Oral Tablet TAKE 1 TABLET DAILY * Quantity: 30 Refills: 1 NAYLA ANGLIN M.D. * Start : 02-Feb-2014 Active metFORMIN HCl ER 500 MG Oral Tablet Extended Release 24 Hour TAKE 1 TABLET BY MOUTH DAILY * Refills: 0 * Start : 01-Feb-2014 Active Spironolactone 50 MG Oral Tablet TAKE 1 TABLET DAILY. * Refills: 0 * Start : 01-Feb-2014 Active Furosemide 20 MG Oral Tablet TAKE 1 TABLET DAILY. * Refills: 0 * Start : 01-Feb-2014 Active Isosorbide Mononitrate ER 60 MG Oral Tablet Extended Release 24 Hour TAKE 1 TABLET ONCE DAILY. * Refills: 0 * Start : 01-Feb-2014 Active Allergies and Adverse Reactions Name Dates Details cortisone (Allergy) Status: Active Cortisporin CREA (Allergy) Status: Active Past Medical History Name Dates Details Coronary artery disease (414.00, I25.10) Status: Active Diabetes mellitus (250.00, E11.9) Status: Active Hyperlipidemia (272.4, E78.5) Status: Active Hypertension (401.9, I10) Status: Active Procedures Procedure Dates Details [QLH] PROTHROMBIN TIME-INR Date: 09-May-2018 History of Hysterectomy Completed History of Cholecystectomy Completed History of Back Surgery Completed History of Hysterectomy Completed History of Cholecystectomy Completed History of Eye Surgery Completed History of Knee Arthroscopy (Therapeutic) Completed History of Foot Surgery Completed Immunization Name Dates Details Immunizations not documented Family History Name Dates Details Family history of Diabetes Mellitus (V18.0) Status: Active Family history of Heart Disease (V17.49) Status: Active Family history of Hypertension (V17.49) Status: Active Family history of Heart disease (429.9, I51.9) Status: Active Family history of Hypertension (401.9, I10) Status: Active Name Dates Details Family history of Diabetes Mellitus (V18.0) Status: Active Family history of Heart Disease (V17.49) Status: Active Family history of Hypertension (V17.49) Status: Active Family history of Diabetes (250.00, E11.9) Status: Active Family history of Heart disease (429.9, I51.9) Status: Active Family history of Hypertension (401.9, I10) Status: Active Social History Name Dates Details Unknown if ever smoked Vital Signs Date Test Result Details No Known Vitals to report Results Date Description Value Details Results not documented Plan of Care Name Dates Details Planned Observations Planned Goals not documented Interventions Provided Labs/Procedures/Imaging* [QLH] PROTHROMBIN TIME-INR; To Be Done: 09 May 2018 Instructions Name Dates Details Instructions not documented Encounters Appointment; USAMA EM M.D. Encounter Diagnosis: Problem not documented On: 20-Jul-2016 9:15 Appointment; USAMA EM M.D. Encounter Diagnosis: Problem not documented On: 23-Oct-2016 9:40 Appointment; USAMA EM M.D. Encounter Diagnosis: Problem not documented On: 11-Jun-2017 9:00 Appointment; USAMA EM M.D. Encounter Diagnosis: Problem not documented On: 09-Dec-2017 9:10 Appointment; USAMA EM M.D. Encounter Diagnosis: Problem not documented On: 09-Apr-2018 9:40
--- NOTE | 2019-01-03 09:51 | NUR ---
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
--- NOTE | 2019-01-03 10:08 | Diagnostic Imaging Report ---
SHOULDER RIGHT COMPLETE - 2 views HISTORY: Pain COMPARISON: None available. FINDINGS: Bones: No acute displaced fracture. Osseous alignment is within normal limits. Joints: No malalignment. Degenerative changes of AC joint. Soft tissues: The soft tissues appear unremarkable. IMPRESSION: No acute fracture or dislocation of the right shoulder. Signed by: Dr. Darren Chase MD on 01/03/2019 10:05 AM
--- NOTE | 2019-01-03 10:21 | NUR ---
straight cath inserted for ua per md order via aseptic technique; urine output approx 50 cc ua collected and sent to lab
[2019-01-03 10:31] LABS: BASOPHILS % 0.4 % (0.0-1.0); EOSINOPHILS # (AUTO) 0.1 (0.0-0.4); EOSINOPHILS % 1.7 % (0.0-6.0); HEMATOCRIT 34.4 % (34.2-44.1); HEMOGLOBIN 10.7 g/dL (12.0-16.0); LYMPHOCYTES # (AUTO) 0.9 (1.0-3.2); LYMPHOCYTES % 17.7 % (18.0-39.1); MEAN CORPUSCULAR HEMOGLOBIN 28.5 pg (28-32); MEAN CORPUSCULAR HGB CONC 31.1 g/dL (31-35); MEAN CORPUSCULAR VOLUME 91.7 fL (81-99); MONOCYTES # (AUTO) 0.6 (0.2-0.8); MONOCYTES % 11.5 % (4.4-11.3); NEUTROPHILS # (AUTO) 3.6 (2.1-6.9); NEUTROPHILS % 68.1 % (38.7-80.0); PLATELET COUNT 201 x10e3/uL (140-360); RED BLOOD COUNT 3.75 x10e6/uL (3.6-5.1); RED CELL DISTRIBUTION WIDTH 16.2 % (11.7-14.4)
--- NOTE | 2019-01-03 10:36 | Diagnostic Imaging Report ---
EXAMINATION: CHEST SINGLE (PORTABLE) INDICATION: ^WEAK ^[id number] ^1000 COMPARISON: None FINDINGS: AP view TUBES and LINES: None. LUNGS: Limited by body habitus. Lungs are well inflated. Central peribronchial cuffing. PLEURA: No significant pleural effusion or pneumothorax. HEART AND MEDIASTINUM: The cardiomediastinal silhouette is unremarkable. BONES AND SOFT TISSUES: No acute osseous lesion. Soft tissues are unremarkable. UPPER ABDOMEN: No free air under the diaphragm. IMPRESSION: Central peribronchial cuffing. Underlying pneumonia cannot be excluded. Signed by: Dr. Darren Chase MD on 01/03/2019 10:33 AM
[2019-01-03 10:39] LABS: BILIRUBIN,URINE NEGATIVE (NEGATIVE); KETONES,URINE NEGATIVE (NEGATIVE); LEUKOCYTE ESTERASE ,URINE NEGATIVE (NEGATIVE); NITRITE,URINE NEGATIVE (NEGATIVE); PROTEIN,URINE DIPSTICK NEGATIVE (NEGATIVE); URINE UROBILINOGEN 0.2 mg/dL (0.2 - 1)
[2019-01-03 10:44] LABS: CLARITY,URINE HAZY (CLEAR); COLOR,URINE YELLOW (YELLOW)
[2019-01-03 10:45] LABS: INR 1.22
[2019-01-03 10:46] LABS: PARTIAL THROMBOPLASTIN TIME 30.1 seconds (23.8-35.5)
[2019-01-03 10:49] LABS: ALBUMIN 2.9 g/dL (3.5-5.0); ALBUMIN/GLOBULIN RATIO 0.9 (0.8-2.0); ANION GAP 14.8 mmol/L (8-16); CREATININE, SERUM 1.28 mg/dL (0.57-1.11); MAGNESIUM 1.5 MG/DL (1.3-2.1); POTASSIUM 3.8 mmol/L (3.5-5.1)
[2019-01-03 10:55] LABS: AMORPHOUS SEDIMENT,URINE FEW (FEW); BACTERIA,URINE FEW /HPF; CREATINE KINASE MB 1.1 ng/mL (0-5.0); EPITHELIAL CELLS,URINE FEW /LPF; RBC,URINE 0-5 /HPF (0-5); WBC,URINE (MAN) 0-5 /HPF (0-5)
[2019-01-03 10:56] LABS: YEAST,URINE MODERATE
[2019-01-03] MEDS ORDERED: DEXTROSE 50% SYRINGE 50 ML IV PRN (11:15)
[2019-01-03] MEDS ORDERED: ONDANSETRON HCL INJ 2MG/ML 2ML 2 MG/ML VIAL IV PRN (11:15)
[2019-01-03] MEDS: INSULIN LISPRO 100 UNIT/1 ML 3ML VIAL SQ SCH ×3 (11:21→21:00)
--- NOTE | 2019-01-03 11:40 | NUR ---
SPOKE WITH ER DOCTOR, PT DISCHARGED FROM [facility], WAITING ON AUTHORIZATION FOR [facility], FAMILY WAS TOLD TO BRING PT HERE UNTIL APPROVED. SPOKE TO KELSI HEADLEY WEEKEND [phone], AND ASKED IF SHE KNEW ABOUT THIS PT, SHE WILL CHECK AND CALL BACK.
--- NOTE | 2019-01-03 11:48 | NUR ---
KELSI RETURNED CALL, STATES NOT PENDING APPROVAL, WILL NEED NEW REFERRAL FROM DOCTOR
--- NOTE | 2019-01-03 12:00 | NUR ---
pt arrived to unit resp even and unlabored at this time no distress noted, pt able to make needs known , pt has family member at bedside, pt oriented to room and call light , bed in lowest position, bed rails up X 2, call light in reach.
[2019-01-03 12:06] VITALS: BP 143/58
[2019-01-03 16:10] VITALS: BP 138/63
[2019-01-03] MEDS ORDERED: CEFAZOLIN SOD 1 GM VIAL IV SCH (18:00)
[2019-01-03] MEDS ORDERED: SODIUM CHLORIDE 0.9% 250ML 250 ML ONE (18:43)
[2019-01-03] MEDS: CEFAZOLIN SOD 1 GM/NS 50ML 50 ML IV SCH (18:47)
--- NOTE | 2019-01-03 19:42 | NUR ---
report given to oncoming nurse . pt stable at shift change.
--- NOTE | 2019-01-03 19:50 | NUR ---
Patient received lying in bed. AAO x 3. Patient had no complaints of pain. Respirations even and non-labored. Fall precautions implemented. Patient instructed to call for assistance when needed. Call light within reach.
[2019-01-03 20:00] VITALS: BP 161/67
[2019-01-03 21:00] VITALS: BP 161/67
--- NOTE | 2019-01-03 22:00 | NUR ---
Admission history obtained from patient. Initial physical assessment performed. Patient oriented to room, call light and plan of care. Patient stated her daughter would bring her current medications tomorrow. Patient assisted to bedside commode. Patient transferring with difficulty to bedside commode due ti right shoulder injury. Purewick placed on patient.
[2019-01-03] MEDS: ACETAMINOPHEN 325 MG TAB PO PRN (22:01)
[2019-01-03 22:24] VITALS: BP 161/67
--- NOTE | 2019-01-03 23:01 | History and Physical ---
HISTORY OF PRESENT ILLNESS: The patient is an 88-year-old female with past medical history positive for diabetes. She complained because of not being able to walk and right shoulder pain. She has been admitted to the hospital. She was found to have difficulty walking. REVIEW OF SYSTEMS: CARDIOVASCULAR: No chest pain or palpitation. RESPIRATORY: No shortness of breath. No cough. GASTROINTESTINAL: No nausea. No vomiting. No diarrhea. GENITOURINARY: No frequency or dysuria. ALLERGIES: SHE IS ALLERGIC TO CORTISONE AND CARDIZEM. PAST MEDICAL HISTORY: Positive for diabetes mellitus type 2. SOCIAL HISTORY: She does not smoke. She does not drink. PHYSICAL EXAMINATION: VITAL SIGNS: Blood pressure 143/58, temperature 37.0, heart rate 89 per minute, respiratory rate 20 per minute, oxygen saturation 98%. HEART: Showed regular rhythm. Normal S1 and S2 sound. LUNGS: Clear bilaterally. ABDOMEN: Soft. EXTREMITIES: Show redness on the lower half of both legs. LABORATORY DATA: On the BMP; sodium 137, potassium 3.8, chloride 106, CO2 of 20, BUN 35, creatinine 1.28, glucose 115. On the CBC; white count 5.30, hemoglobin 10.7, hematocrit 34.4, and platelet count 201,000. PT 16.0, INR 1.22, PTT 30.1. AST 24, ALT 14, total bilirubin 0.6, alkaline phosphatase 126. FINAL IMPRESSION: 1. Difficulty walking. 2. Cellulitis on both lower extremities. 3. Right shoulder pain. 4. Uncontrolled diabetes mellitus type 2 with chronic renal insufficiency. 5. 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 6. Obesity. PLAN OF TREATMENT: Continue monitoring blood sugar before meals and at bedtime. Physical Therapy and Occupational Therapy evaluation. MRI of the right shoulder. We are going to order Orthopedic Surgical consult because of the right shoulder pain. Continue diabetic and renal diet. We are going to order renal ultrasound. We are going to obtain the home medications. MD CHIVO Yusuf/AREN /[id number]
--- NOTE | 2019-01-03 23:27 | NUR ---
Patient's BP elevated. Dr. Randal Royal notified. New order received for Hydralazine 20 mg IV Q4H for BP > 150/90
[2019-01-03] MEDS ORDERED: HYDRALAZINE HCL 20 MG/ML VIAL IV PRN (23:30)
[2019-01-04] VITALS (7 sets, daily range): BP systolic 114–147; BP diastolic 56–61
[2019-01-04] MEDS ORDERED: SODIUM CHLORIDE 0.9% 250ML 250 ML ONE (00:43)
[2019-01-04 05:10] LABS: BASOPHILS % 0.8 % (0.0-1.0); EOSINOPHILS # (AUTO) 0.1 (0.0-0.4); EOSINOPHILS % 2.4 % (0.0-6.0); HEMATOCRIT 31.5 % (34.2-44.1); HEMOGLOBIN 9.9 g/dL (12.0-16.0); LYMPHOCYTES # (AUTO) 1.1 (1.0-3.2); LYMPHOCYTES % 28.2 % (18.0-39.1); MEAN CORPUSCULAR HEMOGLOBIN 28.7 pg (28-32); MEAN CORPUSCULAR HGB CONC 31.4 g/dL (31-35); MEAN CORPUSCULAR VOLUME 91.3 fL (81-99); MONOCYTES # (AUTO) 0.5 (0.2-0.8); MONOCYTES % 14.2 % (4.4-11.3); NEUTROPHILS % 54.1 % (38.7-80.0); PLATELET COUNT 173 x10e3/uL (140-360); RED BLOOD COUNT 3.45 x10e6/uL (3.6-5.1); RED CELL DISTRIBUTION WIDTH 16.4 % (11.7-14.4)
[2019-01-04 05:27] LABS: ALBUMIN 2.3 g/dL (3.5-5.0); ALBUMIN/GLOBULIN RATIO 0.8 (0.8-2.0); ANION GAP 12.8 mmol/L (8-16); CALCIUM 8.5 mg/dL (8.4-10.2); CREATININE, SERUM 1.02 mg/dL (0.57-1.11); POTASSIUM 3.8 mmol/L (3.5-5.1)
[2019-01-04] MEDS: CEFAZOLIN SOD 1 GM/NS 50ML 50 ML IV SCH ×4 (05:39→18:07)
[2019-01-04] MEDS: INSULIN LISPRO 100 UNIT/1 ML 3ML VIAL SQ SCH ×4 (07:30→21:00)
--- NOTE | 2019-01-04 14:49 | Progress Note ---
DATE: 01/04/2019 Internal Medicine Progress Note SUBJECTIVE: The patient is complaining of right shoulder pain. PHYSICAL EXAMINATION: VITAL SIGNS: Blood pressure 147/56, temperature 97.5 degrees Fahrenheit, heart rate is 95 per minute, respiratory rate 18 per minute, oxygen saturation 97%. HEART: Showed tachycardia. Normal S1, S2 sound. LUNGS: Clear bilaterally. EXTREMITIES: Showed decreased redness on both lower extremities. LABORATORY DATA: On the BMP; sodium 139, potassium 3.8, chloride 110, CO2 of 20, BUN 20, creatinine 1.02, glucose 90. On CBC; white blood count 3.72, hemoglobin 9.9, hematocrit 31.5, platelet count 173,000. PT 16.0, INR 1.22, PTT 30.1. AST 23, ALT 12, total bilirubin 0.5, alkaline phosphatase 107. IMPRESSION: 1. Difficulty walking. 2. Right shoulder pain. 3. Cellulitis of both legs. 4. Uncontrolled diabetes mellitus type 2 with chronic renal insufficiency. 5. Chronic renal failure, stage 3. 6. Obesity. 7. Right shoulder pain. PLAN OF TREATMENT: We are going to try to get an MRI of the right shoulder without contrast. Continue Ancef 1 g IV q.6 hours. Continue monitoring blood sugar before meals and at bedtime. Tylenol 650 mg q.4 hours as needed, hydralazine 20 mg IV q.4 hours as needed for hypertension. Dr. Barnhart have been consulted from the orthopedic surgical point of view and Dr. Noble from the physical therapy point of view to see if she can qualify to either long term facility or inpatient rehab facility. MD CHIVO Yusuf/AREN /[id number]
--- NOTE | 2019-01-04 19:33 | NUR ---
Patient received sitting up in bed. AAO x 3. No acute distress noted. Bed locked and in lowest position. Bed rails up x 2. Call light within reach.
--- NOTE | 2019-01-04 20:16 | NUR ---
Report given to oncoming nurse, pt stable at this time.
[2019-01-05] VITALS (8 sets, daily range): BP systolic 114–143; BP diastolic 54–64
[2019-01-05] MEDS: CEFAZOLIN SOD 1 GM/NS 50ML 50 ML IV SCH ×4 (00:25→18:03)
[2019-01-05] MEDS: ACETAMINOPHEN 325 MG TAB PO PRN (05:25)
--- NOTE | 2019-01-05 06:45 | NUR ---
Nurse assisted patient in calling her daughter to bring a list of her home medications to the hospital.
--- NOTE | 2019-01-05 07:00 | NUR ---
Patient resting comfortably. Walking rounds done. Shift report given to oncoming nurse.
--- NOTE | 2019-01-05 07:00 | NUR ---
BEDSIDE SHIFT REPORT RECEIVED FROM CALCINER FEEDER RN. PT DENIES NEEDS AT THIS TIME.
--- NOTE | 2019-01-05 07:05 | NUR ---
PT'S IV ACCIDENTLY REMOVED BY PT. TIP INTACT, NO BLEEDING.
[2019-01-05] MEDS: INSULIN LISPRO 100 UNIT/1 ML 3ML VIAL SQ SCH ×4 (07:30→21:00)
--- NOTE | 2019-01-05 12:36 | NUR ---
PT OFF THE FLOOR FOR MRI.
--- NOTE | 2019-01-05 14:17 | Diagnostic Imaging Report ---
TECHNIQUE: Magnetic resonance imaging of the RIGHT SHOULDER was performed WITHOUT injected contrast. COMPARISON: None available. HISTORY: Right shoulder pain and decreased motion FINDINGS: MUSCLES AND TENDONS: Rotator Cuff: Tendons: Full thickness tear of the supraspinatus tendon with approximately 2 cm retraction with posterior propagation as a partial-thickness articular sided tear into the infraspinatus. High-grade tearing of the subscapularis. Muscles: No focal muscle atrophy. Biceps Tendon: The long head of the biceps tendon is torn and retracted. GLENOHUMERAL JOINT: Glenoid Labrum: Please labral fraying. Articular Cartilage: Partial-thickness cartilage loss AC JOINT AND ACROMION: No hypertrophic degenerative changes of the acromioclavicular joint. Os acromiale. BONE: No acute fracture. SOFT TISSUES: Fluid within the subacromial subdeltoid bursa. IMPRESSION: Limited due to motion Supraspinatus full-thickness tear with retraction and subscapularis high-grade partial-thickness tearing. No atrophy Long head biceps tendon tear with retraction Signed by: Dr. Kulwinder Olmos M.D. on 01/05/2019 2:14 PM
--- NOTE | 2019-01-05 16:14 | NUR ---
WOUND CARE NURSE INITIAL CONSULTATION. 88 YEAR OLD FEMALE ADMITTED TO [facility] WITH DX OF CKD, TENDONITIS AND DECREASED AMBULATION. HEAD TO TOE SKIN ASSESSMENT PERFORMED TODAY. 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 THERE ARE NO OTHER AREAS OF CONCERN NOTED AT THIS TIME. PT EDUCATED ON PLAN OF CARE. STATES UNDERSTANDING. LABS: WBC: 3.27 HGB:9.9 ALB: 2.3 URINE CX POSITIVE FOR YEAST. RECOMMENDATIONS: CLEAN ABDOMINAL FOLDS WITH SOAP AND WATER, PAT DRY AND APPLY NYSTATIN DAILY. APPLY VENELEX OINTMENT TO BILATERAL BUTTOCKS AND COVER WITH FOAM. CONTINUE WITH ALTERNATING LOW AIR LOSS MATTRESS. PROVIDE PT WITH BILATERAL HEEL PROTECTORS AND PILLOW SUSPENSIONS. REPOSITION PT EVERY TWO HOURS AND PRN. THANKS FOR THIS CONSULTATION.
[2019-01-05] MEDS ORDERED: ONDANSETRON HCL 4 MG ORAL DISINTEGRATING TAB PO PRN (16:45)
[2019-01-05] MEDS: FLUCONAZOLE 200 MG/100 ML 100 ML IV SCH (18:03)
[2019-01-05] MEDS ORDERED: ELIQUIS2.5 MG (19:16)
[2019-01-05] MEDS ORDERED: METOPROLOL TART50 MG PO (19:16)
[2019-01-05] MEDS ORDERED: FUROSEMIDE40 MG PO (19:16)
[2019-01-05] MEDS ORDERED: PIOGLITAZONE HC45 MG PO (19:16)
[2019-01-05] MEDS ORDERED: ISOSORBIDE MONO30 MG PO (19:16)
[2019-01-05] MEDS ORDERED: SPIRONOLACTONE25 MG PO (19:16)
[2019-01-06] VITALS (8 sets, daily range): BP systolic 131–153; BP diastolic 61–67
[2019-01-06] MEDS: CEFAZOLIN SOD 1 GM/NS 50ML 50 ML IV SCH ×4 (00:04→17:09)
--- NOTE | 2019-01-06 07:00 | NUR ---
BEDSIDE SHIFT REPORT RECEIVED FROM TENSION WORKER RN. PT DENIES NEEDS AT THIS TIME.
[2019-01-06] MEDS: INSULIN LISPRO 100 UNIT/1 ML 3ML VIAL SQ SCH ×4 (07:30→21:25)
[2019-01-06] MEDS: BALSAM PERU/CASTOR OIL 60 GM OINT...G. TP SCH (09:11)
[2019-01-06] MEDS: NYSTATIN 15 GM POWDER UD BTL TOP SCH (09:11)
--- NOTE | 2019-01-06 11:28 | NUR ---
SPOKE WITH PATIENT ABOUT SNF IN NETWORK, GAVE HER CHOICES OF [facility], [facility] AND FOCUSED CARE OF [facility] CASE BY CASE, WE ATTEMPTED TO CALL THE DAUGHTER CALEB LAFLEUR VIA CELL [phone] AND AT WORK [phone], SHE WAS IN A MEETING AND UNAVAILABLE, LEFT CARD AND LET PT KNOW I WILL CALL DAUGHTER AT LATER TIME TO GET CHOICE
--- NOTE | 2019-01-06 11:37 | NUR ---
DAUGHTER CALLED GAVE OPTIONS IN NETWORK, SHE IS GOING TO GO LOOK AT [facility] AND CALL ME BACK
--- NOTE | 2019-01-06 12:38 | NUR ---
DAUGHTER CALEB CALLED BACK THEY CHOOSE [facility], COMPLETED CHOICE LETTER FILED IN CHART FAXED CLINICALS, COMPLETED PASRR AND
--- NOTE | 2019-01-06 15:10 | NUR ---
Visit made by the Spiritual Care Department Pastoral Visitor, Gay Simmons. Pt sleeping soundly and no family present. Pastoral Visitor left a card describing availability of hooking machine operator and instructions on how to contact a hooking machine operator. LENNY PONCE Intelligence Support Officer Spiritual Care Department O: [phone] Pager: [phone] ([phone] number calling from)
[2019-01-06] MEDS: FLUCONAZOLE 200 MG/100 ML 100 ML IV SCH (17:08)
--- NOTE | 2019-01-06 19:32 | NUR ---
Patient received lying in bed. AAO x 3. Patient had no complaints of pain. Respirations even and non-labored. Purewick in place. Allevyn foam to buttocks. Fall precautions implemented. Patient instructed to call for assistance when needed. Call light within reach.
[2019-01-07] VITALS (7 sets, daily range): BP systolic 124–143; BP diastolic 58–67
[2019-01-07] MEDS: CEFAZOLIN SOD 1 GM/NS 50ML 50 ML IV SCH ×5 (00:54→23:56)
--- NOTE | 2019-01-07 07:15 | NUR ---
Shift report given to oncoming nurse
[2019-01-07] MEDS: INSULIN LISPRO 100 UNIT/1 ML 3ML VIAL SQ SCH ×4 (07:30→21:00)
[2019-01-07] MEDS: NYSTATIN 15 GM POWDER UD BTL TOP SCH (13:43)
[2019-01-07] MEDS: BALSAM PERU/CASTOR OIL 60 GM OINT...G. TP SCH (13:43)
--- NOTE | 2019-01-07 15:43 | NUR ---
patient up in bed, not in any distress, resp even and un labored, call light in reach
--- NOTE | 2019-01-07 15:53 | NUR ---
FAXED PT NOTES TO FACILITY
[2019-01-07] MEDS: FLUCONAZOLE 200 MG/100 ML 100 ML IV SCH (16:17)
--- NOTE | 2019-01-07 17:10 | NUR ---
paged Dr Quiroga S to get order to renew home medications
--- NOTE | 2019-01-07 19:55 | NUR ---
Dr. Albino Quiroga returned call. Order received to renew home medications.
[2019-01-08] VITALS (9 sets, daily range): BP systolic 116–142; BP diastolic 56–88
[2019-01-08] MEDS: CEFAZOLIN SOD 1 GM/NS 50ML 50 ML IV SCH ×3 (05:18→18:08)
--- NOTE | 2019-01-08 07:13 | NUR ---
Patient resting comfortably. Shift report given to oncoming nurse.
[2019-01-08] MEDS: INSULIN LISPRO 100 UNIT/1 ML 3ML VIAL SQ SCH ×4 (07:30→21:00)
[2019-01-08] MEDS ORDERED: PIOGLITAZONE HCL 45 MG TAB PO SCH (09:00)
[2019-01-08] MEDS ORDERED: FUROSEMIDE 40 MG TAB PO SCH (09:00)
[2019-01-08] MEDS: FUROSEMIDE 20 MG TAB PO SCH (09:18)
[2019-01-08] MEDS: PIOGLITAZONE HCL 15 MG TAB PO SCH (09:18)
[2019-01-08] MEDS: APIXAB 2.5 MG TABLET PO SCH ×2 (09:18→16:18)
[2019-01-08] MEDS: ISOSORBIDE MONONITRATE 30 MG TAB CR PO SCH (09:18)
[2019-01-08] MEDS: METOPROLOL TARTRATE 50 MG TAB PO SCH (09:18)
[2019-01-08] MEDS: SPIRONOLACTONE 25 MG TAB PO SCH (09:18)
[2019-01-08] MEDS: NYSTATIN 15 GM POWDER UD BTL TOP SCH (09:19)
--- NOTE | 2019-01-08 09:40 | NUR ---
ASSESSMENT: No spiritual concerns Pt anticipates transfer to rehab. Intervention: Provided hospitality and pastoral presence. Provided information on how to reach textile machine maintenance mechanic, if needed. Outcome: No need to follow at this time. LENNY PONCE Stamping Machine Operator Spiritual Care Department O: [phone] Pager: [phone] ([phone] number calling from)
[2019-01-08] MEDS: BALSAM PERU/CASTOR OIL 60 GM OINT...G. TP SCH (09:57)
--- NOTE | 2019-01-08 10:50 | NUR ---
Dung Smith with admissions at [facility], still pending insurance authorization. Hoping to have an answer today.
--- NOTE | 2019-01-08 15:47 | NUR ---
Received call from Sarah with [facility]. States that insurance has denied, gave option for P2P. left message with Dr. Quiroga for P2P. Number to call is [phone], REF #[id number]. P2P to be done with Dr. Mendoza Asked Dr. Quiroga to do P2P prior to noon tomorrow.
[2019-01-08] MEDS: FLUCONAZOLE 200 MG/100 ML 100 ML IV SCH (16:18)
--- NOTE | 2019-01-08 20:26 | NUR ---
Wound treatment performed per MD's orders. Patient tolerated well.
--- NOTE | 2019-01-08 23:22 | Consultation ---
DATE OF CONSULTATION: 01/08/2019 REASON FOR CONSULTATION: 1. Impaired gait and mobility. 2. Right shoulder pain. 3. Right knee and hip pain, chronic. HISTORY: Mrs. Collins is an unfortunate 88-year-old female with previous history of right hip and shoulder pain due to arthritis, stated that she needs surgery, but they were not willing to perform surgery on her. She has now developed pain to right shoulder and underwent further workup, was admitted here to the hospital and is actually scheduled to be going to a longterm facility according to her. Had the x-ray and shoulder MRI, which showed supraspinatus full-thickness skin tear with retraction, subscapularis high-grade partial-thickening tear, no atrophy, long head of the biceps tendon tear with retraction. Patient does not recall any falls or injury that she is aware of. PAST MEDICAL HISTORY: Includes diabetes. PAST SURGICAL HISTORY: None. HABITS: Denies any history of smoking or drinking. SOCIAL HISTORY: Uses a walker. She is a household ambulator. Lives in one-story home with her daughter. FAMILY HISTORY: Positive for heart disease. REVIEW OF SYSTEMS: Constitutional review of systems, mainly complaining of right shoulder pain as well as right hip and knee pain, which she says she requires surgery, but will not be able to get it. LABORATORY STUDIES: White cell count 3.7, hemoglobin 9.9, hematocrit 31.3, platelets of 173. Blood sugar is 109. INR is 1.22. Physical Therapy saw her earlier today. She is contact guard assist with bed mobility, walked about 16 feet plus 20 feet with min/mod assist. Patient walked another 20 feet, but actually did quite well. PHYSICAL EXAMINATION: GENERAL: Awake and alert. No apparent distress at this time. EYES: Gaze conjugate. ORAL: Tongue is midline. NECK: Supple. Overall, she is morbidly obese. HEART: Regular. LUNGS: Diminished breath sounds. ABDOMEN: Obese. EXTREMITIES: She has swollen legs. She has functional range of motion with shoulder flexion and extension on left, limited range of motion on the right. Elbow flexion, extension, and humid system operator is 4-/5 strength. Shoulder flexion and extension on the right is 1/5 strength. In lower extremity, she has limited active movement to the hips and knees as well, mainly on the right side where she has had severe pain. Manual muscle testing of left arm demonstrates essentially 4-/5 strength throughout. In the right arm, shoulder flexion and extension is 1/5 strength; elbow flexion, extension, humid system operator is 4-/5 strength. In the left leg, demonstrates 4/5 strength throughout. Right leg, hip and knee flexion and extension was limited secondary to pain, ankle dorsiflexion and plantar flexion is 4-/5 strength. IMPRESSION: 1. Right rotator cuff tear. 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 She says she will not be able to get any kind of surgery for that. 2. Morbid obesity. 3. Right hip and right knee osteoarthritis. 4. Diabetes. PLAN: She states that she will not go to inpatient rehab, will be going to what sounds like a skilled unit. We will at this point continue therapy at the skilled unit per her request. Thank you once again Dr. Royal and Dr. Quiroga for allowing me to participate in the care of this pleasant, but unfortunate patient. Michael Noble DO RPL/MODL /[id number]
[2019-01-08] MEDS: ACETAMINOPHEN 325 MG TAB PO PRN (23:24)
[2019-01-09] VITALS (7 sets, daily range): BP systolic 115–160; BP diastolic 52–95
[2019-01-09] MEDS ORDERED: ACETAMINOPHEN 325 MG TAB PO PRN
[2019-01-09] MEDS: CEFAZOLIN SOD 1 GM/NS 50ML 50 ML IV SCH ×3 (00:45→18:38)
--- NOTE | 2019-01-09 02:10 | NUR ---
IV infiltrated on right hand. Old IV removed with tip intact. New IV inserted in left hand 22G. Patient tolerated well.
[2019-01-09] MEDS: INSULIN LISPRO 100 UNIT/1 ML 3ML VIAL SQ SCH ×3 (07:30→17:21)
--- NOTE | 2019-01-09 08:27 | Progress Note ---
DATE: 01/09/2019 SUBJECTIVE: Mrs. Collins was seen on rounds today. The patient is awake and alert, in no apparent distress at this time. OBJECTIVE: VITAL SIGNS: On examination, temperature 97.8, respirations 17, heart is 73, and blood pressure 121/56. HEART: Regular rate and rhythm. LUNGS: Fair air entry. ABDOMEN: Nontender and nondistended. No new changes with regard to her overall situation. LEGS: Weak, especially on the right side because of preexisting right hip and knee pain. Discussed the results of her MRI with the patient. She did see Dr. Barnhart and this has been addressed as well. IMPRESSION: 1. Supraspinatus full-thickness tear. 2. Subscapularis partial thickness tear. 3. Long head of the biceps tendon tear. 4. Right hip and right knee arthritis. 5. Obesity. PLAN: The patient is scheduled to go to a skilled unit for continuation of care. Discussed with the patient at length. No new issues at this point. Michael Noble DO RPL/MODL /[id number]
[2019-01-09] MEDS: FUROSEMIDE 20 MG TAB PO SCH (09:00)
--- NOTE | 2019-01-09 09:21 | NUR ---
SPOKE WITH DR JIMENEZ WE CALLED AND SET UP A PEER TO PEER WITH SHE FROM [facility] [phone] [facility] REFERRAL #[id number], PER SHE JAVED WITH CALL DR JIMENEZ AT 1PM TODAY TO COMPLETE THE PEER TO PEER AND I WILL BE ABLE TO MOVE FORWARD AFTERWARDS TO COMPLETE REFERRAL.
[2019-01-09] MEDS: PIOGLITAZONE HCL 15 MG TAB PO SCH (09:30)
[2019-01-09] MEDS: SPIRONOLACTONE 25 MG TAB PO SCH (09:30)
[2019-01-09] MEDS: APIXAB 2.5 MG TABLET PO SCH ×2 (09:30→17:19)
[2019-01-09] MEDS: ISOSORBIDE MONONITRATE 30 MG TAB CR PO SCH (09:30)
[2019-01-09] MEDS: METOPROLOL TARTRATE 50 MG TAB PO SCH (09:30)
[2019-01-09] MEDS: NYSTATIN 15 GM POWDER UD BTL TOP SCH (09:30)
[2019-01-09] MEDS: BALSAM PERU/CASTOR OIL 60 GM OINT...G. TP SCH (09:31)
--- NOTE | 2019-01-09 14:07 | NUR ---
WAS CALLED BY DR JIMENEZ AND TOLD PEER TO PEER WAS COMPLETED AND AUTHED FOR SNF, CALLED SNF ADMISSION PERSON OUT TO LUNCH WILL CALL BACK AND LEFT MESSAGE THAT WAS APPROVED AND NEED ROOM.
--- NOTE | 2019-01-09 16:07 | NUR ---
SPOKE WITH ALXY AT [facility] [phone] ABOUT THE DENIAL, LET HER KNOW THAT DR JIMENEZ HAD THIS CONVERSATION EARLIER AND THERE WAS NO ORDER FOR A LTAC, SHE STATES THE ORIGINAL CALL FOR THE REFERRAL WAS LABELED NURSING WITH REHABILITATION. GOT FACILITY AND HER ON SPEAKER PHONE AT SAME TIME TO BE ABLE TO GET EVERYONE INVOLVED TO AGREE THAT THE REFERRAL WAS FOR A SNF. WAS TOLD WILL BE FIXED AND APPROVAL WAS ALREADY ISSUED.
--- NOTE | 2019-01-09 16:20 | NUR ---
[facility] FACILITY DISCHARGE INFORMATION PATIENT HAS BEEN ACCEPTED TO: NAME: [facility] ADDRESS:[address] [place] [address] ACCEPTING MD: BARBARA ROOM: [address] NURSE CALL REPORT TO: [phone]
[2019-01-09] MEDS: FLUCONAZOLE 200 MG/100 ML 100 ML IV SCH (17:19)
--- NOTE | 2019-01-09 20:10 | NUR ---
PATIENT TRANSFERRED TO [facility]IA EMS. ALL BELONGING WITH PATIENT.
== END 2019-01-09 20:03 | DRG 563 ==
LOC: ER 08:44 → ERHOLD 11:01 → MED/SURG2 11:49 → OBSVTOIN 01-05 16:47
DX: S43.421A Sprain of right rotator cuff capsule, initial encounter (principal); L03.116 Cellulitis of left lower limb; B37.49 Other urogenital candidiasis; L03.115 Cellulitis of right lower limb; R26.9 Unspecified abnormalities of gait and mobility; I12.9 Hypertensive chronic kidney disease with stage 1 through stage 4 chronic kidney disease, or unspecified chronic kidney disease; E11.21 Type 2 diabetes mellitus with diabetic nephropathy; Z79.4 Long term (current) use of insulin; Z68.39 Body mass index [BMI] 39.0-39.9, adult; E66.01 Morbid (severe) obesity due to excess calories; D63.8 Anemia in other chronic diseases classified elsewhere; E11.65 Type 2 diabetes mellitus with hyperglycemia; M19.011 Primary osteoarthritis, right shoulder; M16.11 Unilateral primary osteoarthritis, right hip; E11.22 Type 2 diabetes mellitus with diabetic chronic kidney disease; N18.3 Chronic kidney disease, stage 3 (moderate); E11.621 Type 2 diabetes mellitus with foot ulcer; L97.529 Non-pressure chronic ulcer of other part of left foot with unspecified severity; M17.11 Unilateral primary osteoarthritis, right knee
CPT/HCPCS: 36415; 71045; 80053; 81001; 82550; 82553; 82948; 83735; 83880; 84484; 85025; 85610; 85730; 87086; 97139; 99284; G0378; J0690; J1450; J7050

== ENCOUNTER 2020-01-27 10:44 | Emergency (ER) | payer MEDICARE, OTHER ==
[~2020-01-27] VITALS: Ht 160 cm; Wt 100.2 kg
[~2020-01-27 10:44] MED LIST: ELIQUIS2.5 MG; FUROSEMIDE40 MG PO; ISOSORBIDE MONO30 MG PO; METOPROLOL TART50 MG PO; PIOGLITAZONE HC45 MG PO; SPIRONOLACTONE25 MG PO
[2020-01-27] MEDS ORDERED: SODIUM CHLORIDE 0.9% 500ML 500 ML IV STA (10:49)
--- OUTSIDE RECORDS SUMMARY | 2020-01-27 11:04 | XMS REPORT | Continuity of Care Document ---
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 [facility] Coronary Artery Disease Active 01/20/2013 [facility] Diabetes Mellitus Active 01/20/2013 [facility] Hyperlipidemia Active 01/20/2013 [facility] Hypertension Active 01/20/2013 [facility] Abnormal Electrocardiogram Act citlali 01/20/2013 [facility] ELEVATED POTASSIUM LEVELS Acti ve [facility] HYPERPOTASSEMIA Active [facility] JOINT PAIN-PELVIS Active [facility] Medications Medication Details Route Status Patient Instructions Ordering Provider Order Date Source Nitrostat 0.4 MG Sublingual Tablet Sublingual ; Start Date: 12/16/2012; End Date: (Active) Active 12/16/2012 [facility] Isosorbide Mononitrate ER 30 MG Oral Tab let Extended Release 24 Hour ; Start Date: ; End Date: 03/1899 (Active) Inactive [facility] Aspirin 81 MG Oral Tablet (Ac tive) Active [facility] Atorvastatin Calcium 20 MG Oral Tablet (Active) Active [facility] Diovan 80 MG Oral Tablet (Act citlali) Active [facility] Spironolactone 50 MG Oral Tablet (Active) Active [facility] Pioglitazone HCl 30 MG Oral Tablet (Active) Active [facility] Metoprolol Tartrate 100 MG Oral Tablet (Active) Active [facility] Premarin 0.625 MG Oral Tablet (Active) Active [facility] MetFORMIN HCl 1000 MG Oral Tablet (Active) Active [facility] Isosorbide Mononitrate ER 30 MG Oral Tab let Extended Release 24 Hour (Active) A ctive [facility] Allergies, Adverse Reactions, Alerts Substance Category Reaction Severity Reaction type Status Date Reported Comments Source cortisone Assertion Drug allergy Active [facility] Cortisporin CREA drug allergy drug allergy Active [facility] Immunizations No Data Provided for This Section Results Order Name Results Value Reference Range Date Interpretation Comments Source ELECTROLYTES Potassium Lvl 5.1 3.5 - 5.1 10/27/2013 [facility] Pathology Reports No Data Provided for This Section Diagnostic Reports Report Value Date Source Hip 2 views DX RIGHT HIP (2 Vi ews) HISTORY: Right hip pain. TECHNIQUE: The right hip was evaluated in neutral and external rotation. FINDINGS:The joint spaces are well maintained. There is no evidence of fracture, degenerative change, or other osteoarticular abnormality. CONCLUSION: 1. Negative right hip. Coding: Hip min 2 views CPT code: 80109 SL: 12 Horacio Saldaña M.D. 05/15/2014 [facility] Consultation Notes No Data Provided for This Section Discharge Summaries No Data Provided for This Section History and Physicals No Data Provided for This Section Vital Signs No Data Provided for This Section Encounters Location Location Details Encounter Type Encounter Number Reason For Visit Attending Provider ADM Date DC Date Status Source AUDIT [id number] 12/16/2012 12/16/2012 [facility] AUDIT [id number] 12/16/2012 12/16/2012 [facility] CALEB Provi chauncey: NAYLA ANGLIN, Status: Pen, Time: 1:45 PM [id number] 01/14/20 13 12/16/2012 [facility] AUDIT [id number] 01/20/2013 01/20/2013 [facility] [id number] Slick Medina 10/27/2013 10/28/2013 [facility] Procedures No Data Provided for This Section Assessment and Plan No Data Provided for This Section Plan of Care Plan of Care Date Source [N] Nuclear Stress Test Myocardial Perf usion Study with Wall Motion 89809 Routine 01/20/2013 [facility] [N] Nuclear Stress Test Myocardial Perf usion Study with Wall Motion 13401 Routine 12/16/2012 [facility] [N] 2D Echo complete, with Doppler [id number] 12/16/2012 Routine 12/16/2012 [facility] Social History Social History Date Source Social History TypeResponse 10/28/2013 [facility] Activities Of Daily Living (Activ e) Caffeine Use (Active) Never A Smoker (Active) 01/20/2013 [facility] Family History Value Date S ource Maternal history of Diabetes Mellitus (V 18.0); (Active) Sororal history of Diabetes Mellitus (V18.0); (Active) Maternal history of Heart Disease (V17.49); (Active) Sororal history of Heart Disease (V17.49); (Active) Maternal history of Hypertension (V17.49); (Active) Sororal history of Hypertension (V17.49); (Active) 01/20/2013 [facility] Maternal history of Diabetes Mellitus (V 18.0); (Active) Sororal history of Diabetes Mellitus (V18.0); (Active) Maternal history of Heart Disease (V17.49); (Active) Sororal history of Heart Disease (V17.49); (Active) Maternal history of Hypertension (V17.49); (Active) Sororal history of Hypertension (V17.49); (Active) 12/16/2012 [facility] Maternal history of Diabetes Mellitus (V 18.0); (Active) Sororal history of Diabetes Mellitus (V18.0); (Active) Maternal history of Heart Disease (V17.49); (Active) Sororal history of Heart Disease (V17.49); (Active) Maternal history of Hypertension (V17.49); (Active) Sororal history of Hypertension (V17.49); (Active) 12/16/2012 [facility] Advance Directives Order Name Results Value Date Source Advance Directives Advance Dir ectives No Advance Directives available. 01/20/2013 [facility] Advance Directives Advance Dir ectives No Advance Directives available. 12/16/2012 [facility] Advance Directives Advance Dir ectives No Advance Directives available. 12/16/2012 [facility] Functional Status No Data Provided for This Section
--- OUTSIDE RECORDS SUMMARY | 2020-01-27 11:04 | XMS REPORT | Continuity of Care Document ---
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 Attphys Unavailable Rj Medina Attphys ROGER WAITE Admphys Unavailable Rj Medina Admphys Payers Payer Name Policy Type Policy Number Effective Date Expiration Date Valeria murphy Aetjeni Medicare Replacement [id number] 2015 00:00:00 [facility] Cigna o [id number] 2001 00:00:00 [facility] Problems Condition Name Condition Details Condition Category Status Onset Date Resolution Date Last Treatment Date Treating Clinician Comments Source PAIN RETREATED MOBILITY PAIN RETREATED MOBILITY Active 05/15/2014 [facility] Active 2014-05-15 00:00:00 2014-05-15 08:35:00 [facility] Chronic kidney disease CKD (chronic kidney disease) Problem Active [facility] Decreased ambulation status Decreased ambulation status Problem Active [facility] Tendinitis of shoulder Tendonitis of shoulder Problem Active [facility] Hypertension Hypertension Problem Active [facility] Hyperlipidemia Hyperlipidemia Problem Active [facility] Coronary artery disease Coronary artery disease Problem Active [facility] Diabetes mellitus Diabetes mellitus Problem Active [facility] EKG, abnormal EKG, abnormal Problem Active [facility] Paroxysmal atrial fibrillation Paroxysmal atrial fibrillation Problem Active [facility] Coronary Artery Disease Gary nary Artery Disease Active 01/20/2013 [facility] Problem Active 2013-01-20 22:30: 53 Tammy Velázquez Diabetes Mellitus Diab etes Mellitus Active 01/20/2013 [facility] Problem Active 2013[facility]01-20 [facility]:30[facility] Hyperlipidemia Hype rlipidemia Active 01/20/2013 [facility] Problem Active 2013-01-20 22:30:53 M stephanrijen Velázquez Hypertension Hype rtension Active 01/20/2013 [facility] Problem Active 2013-01-20 22:30:53 Du Velázquez Abnormal Electrocardiogram Abn ormal Electrocardiogram Active 01/20/2013 [facility] Problem Active 2013-01-20 22:30: 53 [facility] ELEVATED POTASSIUM LEVELS ELEV ATED POTASSIUM LEVELS Active [facility] Active 2013-10-27 09:47:00 [facility] HYPERPOTASSEMIA HYPE RPOTASSEMIA Active [facility] Active 2013-10-27 09:47:00 Tammy Velázquez JOINT PAIN-PELVIS JOIN T PAIN-PELVIS Active [facility] Active 2014-05-15 08:35:00 [facility] Allergies, Adverse Reactions, Alerts Allergy Name Allergy Type Status Severity Reaction(s) Onset Date Inacti ve Date Treating Clinician Comments Source Diltiazem Allergy to Substance Active Severe 2019-01-03 00:00:00 [facility] diltiazem DA Active SV 2018-12-10 00:00:00 [facility] cortisone drug allergy [facility] Cortisporin CREA drug allergy Active [facility] cortisone cortisone Active Du Velázquez Cortisporin CREA Cortisporin CREA Active [facility] Family History Family Member Diagnosis Comments Start Date Stop Date Source Mother Family history of Diabetes Mellitus [facility] Mother Family history of Heart Disease [facility] Mother Family history of Hypertension [facility] Mother Family history of Heart disease [facility] Mother Family history of Hypertension [facility] Sister Family history of Diabetes Mellitus [facility] Sister Family history of Heart Disease [facility] Sister Family history of Hypertension [facility] Sister Family history of Diabetes [facility] Sister Family history of Heart disease [facility] Sister Family history of Hypertension [facility] Unknown Family Member Family History 2012-12-16 14:45:40 2 14:45:40 [facility] Social History Social Habit Start Date Stop Date Quantity Comments Source Social History 2013-01-20 22:30:53 2013-01-20 22:30:53 [facility] Medications Ordered Medication Name Filled Medication Name Start Date Stop Da te Current Medication? Ordering Clinician Indication Dosage Frequency Signature (SIG) Comments Components Source Nitroglycerin 0.4 MG Sublingual Tablet Sublingual Nitr oglycerin 0.4 MG Sublingual Tablet Sublingual 2016-09-25 10:50:37 Yes USAMA MCKINNON M.D. PLACE 1 TABLET UNDER THE TON CARMEN EVERY 5 MINUTES UP TO 3 DOSES NEEDED FOR CHEST PAIN. [facility] Warfarin Sodium 3 MG Oral Tablet Warfarin Sodium 3 MG Oral T ablet 2014-02-02 00:00:00 Yes NAYLA ANGLIN M.D. 1 QD TAKE 1 TABLET CLAIRE LY [facility] metFORMIN HCl ER 500 MG Oral Tablet Extended Release 2 4 Hour metFORMIN HCl ER 500 MG Oral Tablet Extended Release 24 Hour 2014-02-01 00:00:00 Yes TAKE 1 TABLET BY MOUTH DAILY [facility] Spironolactone 50 MG Oral Tablet Spironolactone 50 MG Oral T ablet 2014-02-01 00:00:00 Yes 1 QD TAKE 1 TABLET DAILY. [facility] Furosemide 20 MG Oral Tablet Furosemide 20 MG Oral Tablet 2014-01-10 4 00:00:00 Yes 1 QD TAKE 1 [facility]T DAILY. [facility] Isosorbide Mononitrate ER 60 MG Oral Tablet Extended R elease 24 Hour Isosorbide Mononitrate ER 60 MG Oral Tablet Extended Release 24 Hour 2014-02-01 00:00:00 Yes QD TAKE 1 TABLET ONCE DAILY. [facility] Aspirin 81 MG Oral Tablet 2013-01-20 22:30:53 Yes (Active) [facility] Atorvastatin Calcium 20 MG Oral Tablet 2013-01-20 22:30:53 Yes (Active) Tammy Velázquez Diovan 80 MG Oral Tablet 2013-01-20 22:30:53 Yes (Active) Tammy Velázquez Spironolactone 50 MG Oral Tablet 2013-01-20 22:30:53 Yes (Active) Tammy Velázquez Pioglitazone HCl 30 MG Oral Tablet 2013-01-20 22:30:53 Yes (Active) Tammy Velázquez Metoprolol Tartrate 100 MG Oral Tablet 2013-01-20 22:30:53 Yes (Active) Tammy Velázquez Premarin 0.625 MG Oral Tablet 2013-01-20 22:30:53 Yes (Active) Tammy Velázquez MetFORMIN HCl 1000 MG Oral Tablet 2013-01-20 22:30:53 Yes (Active) Tammy Velázquez Isosorbide Mononitrate ER 30 MG Oral Tablet Extended Release 24 Hour 2012-12-16 14:45:40 Yes (Active) Tammy Velázquez Nitrostat 0.4 MG Sublingual Tablet Sublingual 2012-12-16 05:00:0 0 Yes ; Start Date: 12/16/2012; End Date: (Active) Tammy Velázquez Isosorbide Mononitrate ER 30 MG Oral Tablet Extended Release 24 Hour Yes ; Start Date: ; End Date: (Active) Tammy Velázquez Apixaban (Eliquis) 2.5 Mg Tablet Apixaban (Eliquis) 2.5 Mg Tablet Yes Twice A Day [facility] Furosemide 40 Mg Tablet Furosemide 40 Mg Tablet Yes 20 Daily [facility] Isosorbide Mononitrate (Isosorbide Mononitrate Er) 30 Mg Tab.er.24h Isosorbide Mononitrate (Isosorbide Mononitrate Er) 30 Mg Tab.er.24h Yes 60 Daily [facility] Metoprolol Tartrate 50 Mg Tablet Metoprolol Tartrate 50 Mg Tablet Yes 100 Daily [facility] Pioglitazone Hcl 45 Mg Tablet Pioglitazone Hcl 45 Mg Tablet Yes 30 Daily [facility] Spironolactone 25 Mg Tablet Spironolactone 25 Mg Tablet Yes 50 Daily [facility] Aspirin 81 MG TABS Aspirin 81 MG TABS Yes 1 QD TA KE 1 TABLET DAILY. [facility] Atorvastatin Calcium 20 MG Oral Tablet Atorvastatin Calcium 20 M G Oral Tablet Yes USAMA EM M.D. TAKE 1 TABLET CLAIRE LY AT BEDTIME. [facility] Diovan 80 MG Oral Tablet Diovan 80 MG Oral Tablet Yes 1 QD TAKE 1 TABLET DAILY. [facility] Pioglitazone HCl - 30 MG Oral Tablet Pioglitazone HCl - 30 MG Oral Tablet Yes QD TAKE 1 TABLET ONCE DAILY. [facility] Metoprolol Tartrate 100 MG Oral Tablet Metoprolol Tartrate 100 M G Oral Tablet Yes TAKE 1 TABLET ONCE IN THE MORNIN G AND TWICE AT NIGHT. [facility] Vital Signs Vital Name Observation Time Observation Value Comments Source BP Systolic 2017-12-09 09:24:00 120 mm[Hg] [facility] BP Diastolic 2017-12-09 09:24:00 68 mm[Hg] [facility] Height 2017-12-09 09:24:00 66 [in_us] [facility] Weight 2017-12-09 09:24:00 243 [lb_av] [facility] Body Mass Index Calculated 2017-12-09 09:24:00 39.22 kg/m2 [facility] Heart Rate 2017-12-09 09:24:00 58 /min [facility] BP Systolic 2017-06-11 09:09:00 120 mm[Hg] Location: [place] on: Sitting [facility] BP Diastolic 2017-06-11 09:09:00 62 mm[Hg] Location: [place] on: Sitting [facility] Height 2017-06-11 09:09:00 66 [in_us] [facility] Weight 2017-06-11 09:09:00 238.2 [lb_av] [facility] Body Mass Index Calculated 2017-06-11 09:09:00 38.45 kg/m2 [facility] Heart Rate 2017-06-11 09:09:00 62 /min Location: L Radial; Q uality: Regular [facility] Procedures Procedure Date / Time Performed Performing Clinician Sourc e MRI joint upr extrem w/o dye 2019-01-05 00:00:00 ROGER WAITE [facility] PROTHROMBIN TIME-INR 2018-05-09 00:00:00 [facility] [QL] PROTHROMBIN TIME-INR 2017-10-02 00:00:00 U [facility] [QL] PROTHROMBIN TIME-INR 2017-05-23 00:00:00 [facility] History of Hysterectomy [facility] History of Cholecystectomy [facility] History of Back Surgery [facility] History of Eye Surgery [facility] History of Knee Arthroscopy (Therapeutic) [facility] History of Foot Surgery [facility] Plan of Care Planned Activity Planned Date Details Comments Source Future Scheduled Test 2013-01-20 22:30:53 Plan of Care [code = 1877 6-5] [facility] Scheduled Test 2012-12-16 16:00:25 Plan of Care [code = 1877 6-5] [facility] Future Scheduled Test 2012-12-16 14:45:40 Plan of Care [code = 1877 6-5] [facility] Encounters Start Date/Time End Date/Time Encounter Type Admission Type Attendi [facility] Care Department Encounter ID Source 2019-12-03 19:39:00 Inpatient [facility] [id number] [facility] 2019-11-06 23:03:00 Inpatient [facility] [id number] [facility] 2019-01-05 16:47:00 2019-01-09 20:03:00 Discharged Inpatient 1 MICHAEL QUIROGA [facility] [id number] [facility] 2018-04-09 09:40:00 2018-04-09 09:40:00 Appointment; USAMA EM M.D. NASCIMBENE, ANGELO, M.D. [facility] [id number] [facility] 2017-12-09 09:10:00 2017-12-09 09:10:00 Appointment; USAMA EM M.D. NASCIMBENE, ANGELO, M.D. [facility] at [facility] 45 [id number] [facility] 2017-10-09 09:00:00 2017-10-09 09:00:00 Appointment; USAMA EM M.D. NASCIMBENE, ANGELO, M.D. [facility] 40 [id number] [facility] 2017-06-11 09:00:00 2017-06-11 09:00:00 Appointment; USAMA EM M.D. NASCIMBENE, ANGELO, M.D. [facility] [id number] [facility] 2016-10-23 09:40:00 2016-10-23 09:40:00 Appointment; USAMA EM M.D. NASCIMBENE, ANGELO, M.D. [facility] [id number] [facility] 2016-07-20 09:15:00 2016-07-20 09:15:00 Appointment; USAMA EM M.D. NASCIMBENE, ANGELO, M.D. [facility] [id number] [facility] 2016-03-22 08:45:00 2016-03-22 08:45:00 Appointment; USAMA EM M.D. NASCIMBENE, ANGELO, M.D. [facility] [id number] [facility] 2015-06-20 09:20:00 2015-06-20 09:20:00 Appointment; USAMA EM M.D. NASCIMBENE, ANGELO, M.D. [facility] [id number] [facility] 2013-10-27 09:45:00 2013-10-27 23:59:00 Outpatient Slick Medina [id number] 2013-01-20 16:30:53 2013-01-20 16:30:53 Outpatient JULIAN JORDAN [id number] 2012-12-16 11:00:25 2012-12-16 11:00:25 Outpatient JULIAN JORDAN [id number] 2012-12-16 09:45:40 2012-12-16 09:45:40 Outpatient WILFREDO JORDAN [id number] Results Test Description Test Time Test Comments Results Result Comments Source Bedside Glucose 2019-01-09 08:26:00 Test Item Bedside Glucose (test code = 64092-1) 135 70-120 H Meter ID: [id number] CenterUrine Culture 2019-01-07 06:59:00* Test Item Value Reference Range Interpretation Comments Urine Culture (test code = 630-4) No Result Data Provided [facility] [id number] 14:03:00 [facility] [address] [address] Patient Name: LORENZO CHOWDARY MR #: [id number] : 1930 Age/Sex: 88/F Req #: [id number] Adm Physician: ROGER WAITE MD Ordered by: ROGER WAITE MD Report #: [id number] Location: MED/SURG2 Room/Bed: [facility] Procedure: [id number] MRI/ MRI SHOULDER RIGHT WO Exam Date: Exam Time: REPORT STATUS: Signed TECHNIQUE: Mag netic resonance imaging of the RIGHT SHOULDER was performed WITHOUT injected c ontrast. COMPARISON: None available. HISTORY: Right shoulder pain and decreased motion FINDINGS: MUSCLES AND TENDONS: Rotator Cuff: Tendons: Full thickness tear of the supraspinatus tendon with approx imately 2 cm retraction with posterior propagation as a partial-thickness kim cular sided tear into the infraspinatus. High-grade tearing of the subscapular is. Muscles: No focal muscle atrophy. B iceps Tendon: The long head of the biceps tendon is torn and retracted. GL ENOHUMERAL JOINT: Glenoid Labrum: Please labral fraying. Articula r Cartilage: Partial-thickness cartilage loss AC JOINT AND ACROMION: N o hypertrophic degenerative changes of the acromioclavicular joint. Os acromia le. BONE: No acute fracture. SOFT TISSUES: Fluid within the s ubacromial subdeltoid bursa. IMPRESSION: Limited due to motion Supr aspinatus full-thickness tear with retraction and subscapularis high-grade par tial-thickness tearing. No atrophy Long head biceps tendon tear with retrac tion Signed by: Dr. Darling Contreras M.D. on 01/05/2019 2:14 PM Dicta jamal By: DARLING CONTRERAS MD 13 COPY TO: ROGER WAITE MD Sodium [id number] 05:28:00* Test Item Value Reference Range Interpretation Comments Sodium Level (test code = 2951-2) 139 136-145 [facility] CenterPotassium [id number] 05:28:00* Test Item Value Reference Range Interpretation Comments Potassium Level (test code = 2823-3) 3.8 3.5-5.1 [facility] CenterChloride [id number] 05:28:00* Test Item Value Reference Range Interpretation Comments Chloride Level (test code = 2075-0) 110 98-107 H [facility] CenterCarbon Dioxide [id number] 05:28:00* Test Item Value Reference Range Interpretation Comments Carbon Dioxide Level (test code = 2028-9) 20 22-29 L [facility] CenterAnion [id number] 05:28:00* Test Item Value Reference Range Interpretation Comments Anion Gap (test code = 27464-6) 12.8 8-16 [facility] CenterBlood Urea [id number] 05:28:00* Test Item Value Reference Range Interpretation Comments Blood Urea Nitrogen (test code = 3094-0) 20 7-26 [facility] CenterCreatinine2019-10-27 05:28:00* Test Item Value Reference Range Interpretation Comments Creatinine (test code = 2160-0) 1.02 0.57-1.11 [facility] CenterBUN/Creatinine Tbumo7117-27-40 05:28:00* Test Item Value Reference Range Interpretation Comments BUN/Creatinine Ratio (test code = 3097-3) 20 6-25 [facility] CenterEstimat Glomerular Filtration Rate 2019-01-04 05:28:00* Test Item Value Reference Range Interpretation Comments Estimat Glomerular Filtration Rate (test code = 224948741) 51 >60 L Ranges were taken from the National Kidney Disease Education Program and the [facility] [employer] literature.Reference ranges:60 or greater: Cdwdxk55-56 ( for 3 consecutive months): Chronic kidney disease 15 or less: Kidney failureGuadalupe Regional Medical CenterGlucose Yhcwm6596-90-20 05:28:00* Test Item Value Reference Range Interpretation Comments Glucose Level (test code = WIX7660) 90 74-118 [facility] CenterCalcium Ufldj3633-43-43 05:28:00* Test Item Value Reference Range Interpretation Comments Calcium Level (test code = 01090-3) 8.5 8.4-10.2 [facility] CenterTotal Welyjpntc2727-95-03 05:28:00* Test Item Value Reference Range Interpretation Comments Total Bilirubin (test code = 1975-2) 0.5 0.2-1.2 [facility] CenterAspartate Amino Transf (AST/SGOT) 2019-01-04 05:28:00* Test Item Value Reference Range Interpretation Comments Aspartate Amino Transf (AST/SGOT) (test code = Aspartate Amino Transf (AST/SGOT)) 23 5-34 [facility] CenterAlanine Aminotransferase (ALT/SGPT) 2019-01-04 05:28:00* Test Item Value Reference Range Interpretation Comments Alanine Aminotransferase (ALT/SGPT) (test code = 1742-6) 12 0-55 [facility] CenterTotal Oxqcngi4727-66-25 05:28:00* Test Item Value Reference Range Interpretation Comments Total Protein (test code = 2885-2) 5.1 6.5-8.1 L [facility] CenterAlbumin2019-10-27 05:28:00* Test Item Value Reference Range Interpretation Comments Albumin (test code = 1751-7) 2.3 3.5-5.0 L [facility] CenterGlobulin2019-10-27 05:28:00* Test Item Value Reference Range Interpretation Comments Globulin (test code = 29342-5) 2.8 2.3-3.5 [facility] CenterAlbumin/Globulin Cgird5556-60-61 05:28:00 * Test Item Value Reference Range Interpretation Comments Albumin/Globulin Ratio (test code = 1759-0) 0.8 0.8-2.0 [facility] CenterAlkaline Xetnzxvopos5532-61-03 05:28:00* Test Item Value Reference Range Interpretation Comments Alkaline Phosphatase (test code = 6768-6) 107 40-150 [facility] CenterWhite Blood Qcxzx9695-52-55 05:20:00* Test Item Value Reference Range Interpretation Comments White Blood Count (test code = 6690-2) 3.72 4.8-10.8 L [facility] CenterRed Blood Fhcat9398-50-29 05:20:00* Test Item Value Reference Range Interpretation Comments Red Blood Count (test code = 789-8) 3.45 3.6-5.1 L [facility] CenterHemoglobin2019-10-27 05:20:00* Test Item Value Reference Range Interpretation Comments Hemoglobin (test code = 14832-3) 9.9 12.0-16.0 L [facility] CenterHematocrit2019-10-27 05:20:00* Test Item Value Reference Range Interpretation Comments Hematocrit (test code = 4544-3) 31.5 34.2-44.1 L [facility] CenterMean Corpuscular Gukkbc7298-27-49 05:20:00* Test Item Value Reference Range Interpretation Comments Mean Corpuscular Volume (test code = 787-2) 91.3 81-99 [facility] CenterMean Corpuscular Jmfmupghkc0008-08-62 05:20:00* Test Item Value Reference Range Interpretation Comments Mean Corpuscular Hemoglobin (test code = 785-6) 28.7 28-32 [facility] CenterMean Corpuscular Hemoglobin Concent 2019-01-04 05:20:00* Test Item Value Reference Range Interpretation Comments Mean Corpuscular Hemoglobin Concent (test code = 786-4) 31.4 31-35 [facility] CenterRed Cell Distribution Vkqoq3881-52-57 05:20:00* Test Item Value Reference Range Interpretation Comments Red Cell Distribution Width (test code = 73847-4) 16.4 11.7 -14.4 H [facility] CenterPlatelet Euqts6043-40-08 05:20:00* Test Item Value Reference Range Interpretation Comments Platelet Count (test code = 777-3) 173 140-360 [facility] CenterNeutrophils (%) (Auto)2019-01-04 05:20:00 * Test Item Value Reference Range Interpretation Comments Neutrophils (%) (Auto) (test code = 24198-3) 54.1 38.7-80.0 [facility] CenterLymphocytes (%) (Auto)2019-01-04 05:20:00 * Test Item Value Reference Range Interpretation Comments Lymphocytes (%) (Auto) (test code = 736-9) 28.2 18.0-39.1 [facility] CenterMonocytes (%) (Auto)2019-01-04 05:20:00* Test Item Value Reference Range Interpretation Comments Monocytes (%) (Auto) (test code = 5905-5) 14.2 4.4-11.3 H [facility] CenterEosinophils (%) (Auto)2019-01-04 05:20:00 * Test Item Value Reference Range Interpretation Comments Eosinophils (%) (Auto) (test code = 713-8) 2.4 0.0-6.0 [facility] CenterBasophils (%) (Auto)2019-01-04 05:20:00* Test Item Value Reference Range Interpretation Comments Basophils (%) (Auto) (test code = 706-2) 0.8 0.0-1.0 [facility] CenterIM GRANULOCYTES %2019-01-04 05:20:00* Test Item Value Reference Range Interpretation Comments IM GRANULOCYTES % (test code = IM GRANULOCYTES %) 0.3 0.0- 1.0 [facility] CenterNeutrophils # (Auto)2019-01-04 05:20:00* Test Item Value Reference Range Interpretation Comments Neutrophils # (Auto) (test code = 751-8) 2.0 2.1-6.9 L [facility] CenterLymphocytes # (Auto)2019-01-04 05:20:00* Test Item Value Reference Range Interpretation Comments Lymphocytes # (Auto) (test code = 67041-7) 1.1 1.0-3.2 [facility] CenterMonocytes # (Auto)2019-01-04 05:20:00* Test Item Value Reference Range Interpretation Comments Monocytes # (Auto) (test code = 742-7) 0.5 0.2-0.8 [facility] CenterEosinophils # (Auto)2019-01-04 05:20:00* Test Item Value Reference Range Interpretation Comments Eosinophils # (Auto) (test code = 711-2) 0.1 0.0-0.4 [facility] CenterBasophils # (Auto)2019-01-04 05:20:00* Test Item Value Reference Range Interpretation Comments Basophils # (Auto) (test code = 704-7) 0.0 0.0-0.1 [facility] CenterAbsolute Immature Granulocyte (auto 2019-01-04 05:20:00* Test Item Value Reference Range Interpretation Comments Absolute Immature Granulocyte (auto (jossue t code = Absolute Immature Granulocyte (auto) 0.01 0-0.1 [facility] CenterB-Type Natriuretic Hsiawhj7804-04-85 11:10:00* Test Item Value Reference Range Interpretation Comments B-Type Natriuretic Peptide (test code = 44630-6) 94.5 0-100 [facility] CenterUrine [id number] 10:57:00* Test Item Value Reference Range Interpretation Comments Urine WBC (test code = 5821-4) 0-5 0-5 [facility] CenterUrine [id number] 10:57:00* Test Item Value Reference Range Interpretation Comments Urine RBC (test code = 33130-2) 0-5 0-5 [facility] CenterUrine [id number] 10:57:00* Test Item Value Reference Range Interpretation Comments Urine Bacteria (test code = 62572-3) FEW NONE [facility]helial [id number] 10:57:00 * Test Item Value Reference Range Interpretation Comments Urine Epithelial Cells (test code = 74655-6) FEW NONE [facility] Amorphous [id number] 10:57:00* Test Item Value Reference Range Interpretation Comments Urine Amorphous Sediment (test code = 8246-1) FEW FEW [facility] Fine Granular [id number] 10:57:00* Test Item Value Reference Range Interpretation Comments Urine Fine Granular Casts (test code = 92685-7) 1-5 >0 H [facility] [id number] 10:57:00* Test Item Value Reference Range Interpretation Comments Urine Yeast (test code = 77452-6) MODERATE NONE H [facility] Center[facility] [id number] 10:57:00* Test Item Value Reference Range Interpretation Comments Magnesium Level (test code = 49837-1) 1.5 1.3-2.1 [facility] [id number] 10:57:00* Test Item Value Reference Range Interpretation Comments Creatine Kinase (test code = 2157-6) 18 29-168 L [facility] Kinase [id number] 10:57:00* Test Item Value Reference Range Interpretation Comments Creatine Kinase MB (test code = 90573-1) 1.10 0-5.0 [facility] CenterTroponin [id number] 10:57:00* Test Item Value Reference Range Interpretation Comments Troponin I (test code = LBC5843) 0.113 0-0.300 [facility] CenterProthrombin [id number] 10:47:00* Test Item Value Reference Range Interpretation Comments Prothrombin Time (test code = 5902-2) 16.0 11.9-14.5 H [facility] CenterProthromb Time International Ratio 2019-01-03 10:47:00* Test Item Value Reference Range Interpretation Comments Prothromb Time International Ratio (test code = 6301-6) 1.22 Oral Anticoagulant Therapy INR Values:1. Low Intensity Therapy 1.5 - 2.02 . Moderate Intensity Therapy 2.0 - 3.03. High Intensity Therapy(1) 2.5 - 3. 54. High Intensity Therapy(2) 3.0 - 4.05. Panic Value INR > 5.0 [facility] Center[facility] Partial Thromboplast Time 2019-01-03 10:47:00* Test Item Value Reference Range Interpretation Comments Activated Partial Thromboplast Time (test code = 29453-1) 30.1 23.8-35.5 [facility] [id number] 10:44:00* Test Item Value Reference Range Interpretation Comments Urine Color (test code = 5778-6) YELLOW YELLOW [facility] Cazpcdu3476-14-56 10:44:00* Test Item Value Reference Range Interpretation Comments Urine Clarity (test code = 82428-1) HAZY CLEAR [facility] Center[facility] Specific [id number] 10:44:00 * Test Item Value Reference Range Interpretation Comments Urine Specific [place] (test code = 5811-5) >=1.030 1.010-1.02 5 [facility] Center[facility] [id number] 10:44:00* Test Item Value Reference Range Interpretation Comments Urine pH (test code = 93542-9) 5 5-7 [facility] Leukocyte Knlyvboe3963-06-37 10:44:00* Test Item Value Reference Range Interpretation Comments Urine Leukocyte Esterase (test code = 94960-6) NEGATIVE NEGATIV E [facility] Iadijhf3503-90-80 10:44:00* Test Item Value Reference Range Interpretation Comments Urine Nitrite (test code = 79099-4) NEGATIVE NEGATIVE [facility] Mvwoazs4646-70-99 10:44:00* Test Item Value Reference Range Interpretation Comments Urine Protein (test code = 38802-1) NEGATIVE NEGATIVE [facility] Glucose (UA)2019-01-03 10:44:00* Test Item Value Reference Range Interpretation Comments Urine Glucose (UA) (test code = 74997-0) NEGATIVE NEGATIVE [facility] Wqvyytl2708-47-93 10:44:00* Test Item Value Reference Range Interpretation Comments Urine Ketones (test code = 22469-9) NEGATIVE NEGATIVE [facility] Gczbztcdkiwx0131-49-69 10:44:00* Test Item Value Reference Range Interpretation Comments Urine Urobilinogen (test code = 14104-3) 0.2 0.2-1 [facility] Thlezbxgz8933-15-36 10:44:00* Test Item Value Reference Range Interpretation Comments Urine Bilirubin (test code = 1977-8) NEGATIVE NEGATIVE [facility] Jpbmo8120-30-41 10:44:00* Test Item Value Reference Range Interpretation Comments Urine Blood (test code = 14374-2) NEGATIVE NEGATIVE [facility] CenterCHEST SINGLE (PORTABLE)2019-01-03 10:32:00 [facility] [address] [place] [address] Patient Name: LORENZO CHOWDARY MR #: [id number] : 1930 Age/Sex: 88/F Req #: [id number] Adm Physician: Ordered by: SUYAPA THOMAS MD Report #: [id number] Location: ER Room/Bed: Procedure: [id number] DX/CH EST SINGLE (PORTABLE) Exam Date: 01/03/19 Exam Time: 1000 REPORT STATUS: Signed EXAM INATION: CHEST SINGLE (PORTABLE) INDICATION: WEAK [id number] COMPARISON: None FINDINGS: AP view TUBES and L JOVANNY: None. LUNGS: Limited by body habitus. Lungs are well inflated. Cent ral peribronchial cuffing. PLEURA: No significant pleural effusion or pn eumothorax. HEART AND MEDIASTINUM: The cardiomediastinal silhouette is unr emarkable. BONES AND SOFT TISSUES: No acute osseous lesion. Soft tiss ues are unremarkable. UPPER ABDOMEN: No free air under the diaphragm. IMPRESSION: Central peribronchial cuffing. Underlying pneumonia cannot be excluded. Signed by: Dr. Darren Rivero MD on 01/03/2019 10:33 AM Dictated By: DARREN RIVERO MD 1033 Transcribed By: GADIEL on 01/03/19 1033 COPY TO: SUYAPA THOMAS MD SHOULDER RIGHT [id number] 10:02:00 [place] [address] Patient Name: LORENZO CHOWDARY MR #: [id number] : 1930 Age/Sex: 88/F Req #: [id number] Adm Physician: Ordered by: SUYAPA THOMAS MD Report #: [id number] Location: ER Room/Bed: Procedure: [id number] DX/ NIESHALDJAMIR RIGHT COMPLETE Exam Date: 01/03/19 Exam Time: 0935 REPORT STATUS: [facility]TE - 2 views HISTORY: Pain COMPARISON: None available. FINDINGS: Bones: No acute displaced fracture. Osseous alignment is within normal limits. Joints: No malalignment. Degenerative changes of AC joint. Soft tissues: The soft tissues appear unremarkable. IMPRESSION: No acute fracture or dislocation of the right shoulder. Sign ed by: Dr. Darren Rivero MD on 01/03/2019 10:05 AM Dictated By: DARREN KAUR MD 1005 Transcrib ed By: GADIEL on 01/03/19 1005 COPY TO: SUYAPA THOMAS MD GLUBED 2018-12-18 11:59:00* Test Item Value Reference Range Interpretation Comments GLUBED (test code = GLUBED) 146 mg/dL 74-106 H Performed by certified overlock sewing machine operator at [facility] BASIC METABOLIC [id number] 10:40:00* Test Item Value Reference Range Interpretation Comments SODIUM (test code = NA) 139 mmol/L 136-145 N POTASSIUM (test code = K) 3.9 mmol/L 3.5-5.1 N CHLORIDE (test code = CL) 105.0 mmol/L 98-107 N CARBON DIOXIDE (test code = CO2) 25.0 mmol/L 21-32 N ANION GAP (test code = GAP) 12.9 10-20 N GLUCOSE (test code = GLU) 133 mg/dL 74-106 H BLOOD UREA NITROGEN (test code = BUN) 29 mg/dL 7-18 H GLOMERULAR FILTRATION RATE (test code = GFR) 28 mL/min >=60 Estimated GFR by using Modified MDRD formula.Chronic kidney disease is defined as either kidney damageor GFR <60 mL/min/1.73 m2 for >3 months. CREATININE (test code = CREAT) 1.70 mg/dL 0.55-1.02 H Note change in reference range due to change in reagent. BUN/CREATININE RATIO (test code = BUN/CREA) 16.9 10-20 N CALCIUM (test code = CA) 9.1 mg/dL 8.5-10.1 N BASIC METABOLIC [id number] 10:36:00* Test Item Value Reference Range Interpretation Comments SODIUM (test code = NA) 139 mmol/L 136-145 N POTASSIUM (test code = K) 3.9 mmol/L 3.5-5.1 N CHLORIDE (test code = CL) 105.0 mmol/L 98-107 N CARBON DIOXIDE (test code = CO2) mmol/L 21-32 ANION GAP (test code = GAP) 10-20 GLUCOSE (test code = GLU) mg/dL 74-106 BLOOD UREA NITROGEN (test code = BUN) mg/dL 7-18 GLOMERULAR FILTRATION RATE (test code = GFR) mL/min >=60 CREATININE (test code = CREAT) mg/dL 0.55-1.02 BUN/CREATININE RATIO (test code = BUN/CREA) 10-20 CALCIUM (test code = CA) mg/dL 8.5-10.1 [id number] 08:02:00* Test Item Value Reference Range Interpretation Comments GLUBED (test code = GLUBED) 105 mg/dL 74-106 N Performed by certified overlock sewing machine operator at [facility] [id number] 19:49:00* Test Item Value Reference Range Interpretation Comments GLUBED (test code = GLUBED) 183 mg/dL 74-106 H Performed by certified overlock sewing machine operator at [facility] [id number] 16:10:00* Test Item Value Reference Range Interpretation Comments GLUBED (test code = GLUBED) 168 mg/dL 74-106 H Performed by certified overlock sewing machine operator at [facility] [id number] 11:32:00* Test Item Value Reference Range Interpretation Comments GLUBED (test code = GLUBED) 126 mg/dL 74-106 H Performed by certified overlock sewing machine operator at [facility] [id number] 08:14:00* Test Item Value Reference Range Interpretation Comments GLUBED (test code = GLUBED) 109 mg/dL 74-106 H Performed by certified overlock sewing machine operator at [facility] BASIC METABOLIC [id number] 05:54:00* Test Item Value Reference Range Interpretation Comments SODIUM (test code = NA) 137 mmol/L 136-145 N POTASSIUM (test code = K) 4.1 mmol/L 3.5-5.1 N CHLORIDE (test code = CL) 104.0 mmol/L 98-107 N CARBON DIOXIDE (test code = CO2) 25.0 mmol/L 21-32 N ANION GAP (test code = GAP) 12.1 10-20 N GLUCOSE (test code = GLU) 137 mg/dL 74-106 H BLOOD UREA NITROGEN (test code = BUN) 31 mg/dL 7-18 H GLOMERULAR FILTRATION RATE (test code = GFR) 25 mL/min >=60 Estimated GFR by using Modified MDRD formula.Chronic kidney disease is defined as either kidney damageor GFR <60 mL/min/1.73 m2 for >3 months. CREATININE (test code = CREAT) 1.90 mg/dL 0.55-1.02 H Note change in reference range due to change in reagent. BUN/CREATININE RATIO (test code = BUN/CREA) 16.1 10-20 N CALCIUM (test code = CA) 8.7 mg/dL 8.5-10.1 N BASIC METABOLIC [id number] 05:42:00* Test Item Value Reference Range Interpretation Comments SODIUM (test code = NA) 137 mmol/L 136-145 N POTASSIUM (test code = K) 4.1 mmol/L 3.5-5.1 N CHLORIDE (test code = CL) 104.0 mmol/L 98-107 N CARBON DIOXIDE (test code = CO2) mmol/L 21-32 ANION GAP (test code = GAP) 10-20 GLUCOSE (test code = GLU) mg/dL 74-106 BLOOD UREA NITROGEN (test code = BUN) mg/dL 7-18 GLOMERULAR FILTRATION RATE (test code = GFR) mL/min >=60 CREATININE (test code = CREAT) mg/dL 0.55-1.02 BUN/CREATININE RATIO (test code = BUN/CREA) 10-20 CALCIUM (test code = CA) mg/dL 8.5-10.1 [id number] 21:03:00* Test Item Value Reference Range Interpretation Comments GLUBED (test code = GLUBED) 137 mg/dL 74-106 H Performed by certified overlock sewing machine operator at [facility] [id number] 17:04:00* Test Item Value Reference Range Interpretation Comments GLUBED (test code = GLUBED) 103 mg/dL 74-106 N Performed by certified overlock sewing machine operator at [facility] [id number] 12:26:00* Test Item Value Reference Range Interpretation Comments GLUBED (test code = GLUBED) 125 mg/dL 74-106 H Performed by certified overlock sewing machine operator at [facility] [id number] 08:14:00* Test Item Value Reference Range Interpretation Comments GLUBED (test code = GLUBED) 103 mg/dL 74-106 N Performed by certified overlock sewing machine operator at [facility] BLOOD UREA [id number] 05:17:00* Test Item Value Reference Range Interpretation Comments BLOOD UREA NITROGEN (test code = BUN) 32 mg/dL 7-18 H [id number] 05:17:00* Test Item Value Reference Range Interpretation Comments CREATININE (test code = CREAT) 2.10 mg/dL 0.55-1.02 H Note change in reference range due to change in reagent. [id number] 20:44:00* Test Item Value Reference Range Interpretation Comments GLUBED (test code = GLUBED) 143 mg/dL 74-106 H Performed by certified overlock sewing machine operator at [facility] [id number] 17:23:00* Test Item Value Reference Range Interpretation Comments GLUBED (test code = GLUBED) 116 mg/dL 74-106 H Performed by certified overlock sewing machine operator at [facility] [id number] 12:16:00* Test Item Value Reference Range Interpretation Comments GLUBED (test code = GLUBED) 168 mg/dL 74-106 H Performed by certified overlock sewing machine operator at [facility] [id number] 08:35:00* Test Item Value Reference Range Interpretation Comments GLUBED (test code = GLUBED) 104 mg/dL 74-106 N Performed by certified overlock sewing machine operator at [facility] PROTHROMBIN [id number] 06:43:00* Test Item Value Reference Range Interpretation Comments PROTHROMBIN TIME PATIENT (test code = PTP) 13.4 seconds 9.0-14.0 N INTERNATIONAL NORMAL RATIO (test code = INR) 1.1 0.8-1.2 N The therapeutic range for oral anticoagulant therapy [...] 2018-12-15 06:41:00* Test Item Value Reference Range Interpretation Comments WHITE BLOOD CELL (test code = WBC) 8.1 K/mm3 4.5-12.5 N RED BLOOD CELL (test code = RBC) 3.72 mill/mm3 3.7-5.2 N HEMOGLOBIN (test code = HGB) 10.1 gram/dL 11.5-15.5 L HEMATOCRIT (test code = HCT) 33.2 % 36.0-46.0 L MEAN CELL VOLUME (test code = MCV) 89.2 fL 80-98 N MEAN CELL HGB (test code = MCH) 27.2 picogram 27.0-33.0 N MEAN CELL HGB CONCETRATION (test code = MCHC) 30.4 gram/dL 33.0-36. 0 L RED CELL DISTRIBUTION WIDTH (test code = RDW) 16.3 % 11.6-16. 2 H RED CELL DISTRIBUTION WIDTH SD (test code = RDW-SD) 52.2 fL 37 .0-51.0 H PLATELET COUNT (test code = PLT) 212 K/mm3 150-450 N MEAN PLATELET VOLUME (test code = MPV) 9.9 fL 6.7-11.0 N NEUTROPHIL % (test code = NT%) 63.5 % 39.0-69.0 N IMMATURE GRANULOCYTE % (test code = IG%) 1.1 % 0.0-5.0 N LYMPHOCYTE % (test code = LY%) 17.6 % 25.0-55.0 L MONOCYTE % (test code = MO%) 15.2 % 0.0-10.0 H EOSINOPHIL % (test code = EO%) 1.9 % 0.0-5.0 N BASOPHIL % (test code = BA%) 0.7 % 0.0-1.0 N NUCLEATED RBC % (test code = NRBC%) 0.0 % 0-0 N NEUTROPHIL # (test code = NT#) 5.13 K/mm3 1.8-7.7 N IMMATURE GRANULOCYTE # (test code = IG#) 0.09 x10 3/uL 0-0.03 H LYMPHOCYTE # (test code = LY#) 1.42 K/mm3 1.0-5.0 N MONOCYTE # (test code = MO#) 1.23 K/mm3 0-0.8 H EOSINOPHIL # (test code = EO#) 0.15 K/mm3 0.0-0.5 N BASOPHIL # (test code = BA#) 0.06 K/mm3 0.0-0.2 N NUCLEATED RBC # (test code = NRBC#) 0.00 K/mm3 0.0-0.1 N MANUAL DIFF REQUIRED (test code = MDIFF) NO BASIC METABOLIC [id number] 06:21:00* Test Item Value Reference Range Interpretation Comments SODIUM (test code = NA) 137 mmol/L 136-145 N POTASSIUM (test code = K) 3.9 mmol/L 3.5-5.1 N CHLORIDE (test code = CL) 102.0 mmol/L 98-107 N CARBON DIOXIDE (test code = CO2) 27.0 mmol/L 21-32 N ANION GAP (test code = GAP) 11.9 10-20 N GLUCOSE (test code = GLU) 107 mg/dL 74-106 H BLOOD UREA NITROGEN (test code = BUN) 36 mg/dL 7-18 H GLOMERULAR FILTRATION RATE (test code = GFR) 25 mL/min >=60 Estimated GFR by using Modified MDRD formula.Chronic kidney disease is defined as either kidney damageor GFR <60 mL/min/1.73 m2 for >3 months. CREATININE (test code = CREAT) 1.90 mg/dL 0.55-1.02 H Note change in reference range due to change in reagent. BUN/CREATININE RATIO (test code = BUN/CREA) 19.3 10-20 N CALCIUM (test code = CA) 8.7 mg/dL 8.5-10.1 N BASIC METABOLIC [id number] 06:15:00* Test Item Value Reference Range Interpretation Comments SODIUM (test code = NA) 137 mmol/L 136-145 N POTASSIUM (test code = K) 3.9 mmol/L 3.5-5.1 N CHLORIDE (test code = CL) 102.0 mmol/L 98-107 N CARBON DIOXIDE (test code = CO2) mmol/L 21-32 ANION GAP (test code = GAP) 10-20 GLUCOSE (test code = GLU) mg/dL 74-106 BLOOD UREA NITROGEN (test code = BUN) mg/dL 7-18 GLOMERULAR FILTRATION RATE (test code = GFR) mL/min >=60 CREATININE (test code = CREAT) mg/dL 0.55-1.02 BUN/CREATININE RATIO (test code = BUN/CREA) 10-20 CALCIUM (test code = CA) mg/dL 8.5-10.1 [id number] 21:18:00* Test Item Value Reference Range Interpretation Comments GLUBED (test code = GLUBED) 175 mg/dL 74-106 H Performed by certified overlock sewing machine operator at [facility] [id number] 16:25:00* Test Item Value Reference Range Interpretation Comments GLUBED (test code = GLUBED) 118 mg/dL 74-106 H Performed by certified overlock sewing machine operator at [facility] [id number] 12:18:00* Test Item Value Reference Range Interpretation Comments GLUBED (test code = GLUBED) 100 mg/dL 74-106 N Performed by certified overlock sewing machine operator at [facility] [id number] 08:18:00* Test Item Value Reference Range Interpretation Comments GLUBED (test code = GLUBED) 94 mg/dL 74-106 N Performed by certified overlock sewing machine operator at [facility] PROTHROMBIN [id number] 06:04:00* Test Item Value Reference Range Interpretation Comments PROTHROMBIN TIME PATIENT (test code = PTP) 15.9 seconds 9.0-14.0 H INTERNATIONAL NORMAL RATIO (test code = INR) 1.3 0.8-1.2 H The therapeutic range for oral anticoagulant therapy [...] PATIENT ON ANTICOAGULANTS? YLIST ANTICOAGULANTS COUMADINCOMPREHENSIVE METABOLIC [id number] 06:04:00* Test Item Value Reference Range Interpretation Comments SODIUM (test code = NA) 139 mmol/L 136-145 N POTASSIUM (test code = K) 4.0 mmol/L 3.5-5.1 N CHLORIDE (test code = CL) 106.0 mmol/L 98-107 N CARBON DIOXIDE (test code = CO2) 24.0 mmol/L 21-32 N ANION GAP (test code = GAP) 13.0 10-20 N GLUCOSE (test code = GLU) 99 mg/dL 74-106 N BLOOD UREA NITROGEN (test code = BUN) 31 mg/dL 7-18 H GLOMERULAR FILTRATION RATE (test code = GFR) 30 mL/min >=60 Estimated GFR by using Modified MDRD formula.Chronic kidney disease is defined as either kidney damageor GFR <60 mL/min/1.73 m2 for >3 months. CREATININE (test code = CREAT) 1.60 mg/dL 0.55-1.02 H Note change in reference range due to change in reagent. BUN/CREATININE RATIO (test code = BUN/CREA) 18.9 10-20 N TOTAL PROTEIN (test code = PROT) 5.8 gram/dL 6.4-8.2 L ALBUMIN (test code = ALB) 2.4 g/dL 3.4-5.0 L GLOBULIN (test code = GLOB) 3.4 gram/dL 2.7-4.2 N ALBUMIN/GLOBULIN RATIO (test code = A/G) 0.7 0.75-1.50 L CALCIUM (test code = CA) 8.4 mg/dL 8.5-10.1 L BILIRUBIN TOTAL (test code = BILT) 0.50 mg/dL 0.0-1.0 N SGOT/AST (test code = AST) 25 IUnit/L 15-37 N SGPT/ALT (test code = ALT) 13 IUnit/L 12-78 N ALKALINE PHOSPHATASE TOTAL (test code = ALKP) 112 IUnit/L 45-117 N Note change in reference range due to change in reagent. CBC W/AUTO [id number] 05:56:00* Test Item Value Reference Range Interpretation Comments WHITE BLOOD CELL (test code = WBC) 6.9 K/mm3 4.5-12.5 N RED BLOOD CELL (test code = RBC) 3.65 mill/mm3 3.7-5.2 L HEMOGLOBIN (test code = HGB) 10.1 gram/dL 11.5-15.5 L HEMATOCRIT (test code = HCT) 32.3 % 36.0-46.0 L MEAN CELL VOLUME (test code = MCV) 88.5 fL 80-98 N MEAN CELL HGB (test code = MCH) 27.7 picogram 27.0-33.0 N MEAN CELL HGB CONCETRATION (test code = MCHC) 31.3 gram/dL 33.0-36. 0 L RED CELL DISTRIBUTION WIDTH (test code = RDW) 16.2 % 11.6-16. 2 N RED CELL DISTRIBUTION WIDTH SD (test code = RDW-SD) 52.6 fL 37 .0-51.0 H PLATELET COUNT (test code = PLT) 201 K/mm3 150-450 N MEAN PLATELET VOLUME (test code = MPV) 10.0 fL 6.7-11.0 N NEUTROPHIL % (test code = NT%) 60.2 % 39.0-69.0 N IMMATURE GRANULOCYTE % (test code = IG%) 0.7 % 0.0-5.0 N LYMPHOCYTE % (test code = LY%) 22.4 % 25.0-55.0 L MONOCYTE % (test code = MO%) 13.5 % 0.0-10.0 H EOSINOPHIL % (test code = EO%) 2.6 % 0.0-5.0 N BASOPHIL % (test code = BA%) 0.6 % 0.0-1.0 N NUCLEATED RBC % (test code = NRBC%) 0.0 % 0-0 N NEUTROPHIL # (test code = NT#) 4.13 K/mm3 1.8-7.7 N IMMATURE GRANULOCYTE # (test code = IG#) 0.05 x10 3/uL 0-0.03 H LYMPHOCYTE # (test code = LY#) 1.54 K/mm3 1.0-5.0 N MONOCYTE # (test code = MO#) 0.93 K/mm3 0-0.8 H EOSINOPHIL # (test code = EO#) 0.18 K/mm3 0.0-0.5 N BASOPHIL # (test code = BA#) 0.04 K/mm3 0.0-0.2 N NUCLEATED RBC # (test code = NRBC#) 0.00 K/mm3 0.0-0.1 N MANUAL DIFF REQUIRED (test code = MDIFF) NO COMPREHENSIVE METABOLIC [id number] 05:54:00* Test Item Value Reference Range Interpretation Comments SODIUM (test code = NA) 139 mmol/L 136-145 N POTASSIUM (test code = K) 4.0 mmol/L 3.5-5.1 N CHLORIDE (test code = CL) 106.0 mmol/L 98-107 N CARBON DIOXIDE (test code = CO2) mmol/L 21-32 ANION GAP (test code = GAP) 10-20 GLUCOSE (test code = GLU) mg/dL 74-106 BLOOD UREA NITROGEN (test code = BUN) mg/dL 7-18 GLOMERULAR FILTRATION RATE (test code = GFR) mL/min >=60 CREATININE (test code = CREAT) mg/dL 0.55-1.02 BUN/CREATININE RATIO (test code = BUN/CREA) 10-20 TOTAL PROTEIN (test code = PROT) gram/dL 6.4-8.2 ALBUMIN (test code = ALB) g/dL 3.4-5.0 GLOBULIN (test code = GLOB) gram/dL 2.7-4.2 ALBUMIN/GLOBULIN RATIO (test code = A/G) 0.75-1.50 CALCIUM (test code = CA) mg/dL 8.5-10.1 BILIRUBIN TOTAL (test code = BILT) mg/dL 0.0-1.0 SGOT/AST (test code = AST) IUnit/L 15-37 SGPT/ALT (test code = ALT) IUnit/L 12-78 ALKALINE PHOSPHATASE TOTAL (test code = ALKP) IUnit/L 45-117 [id number] 20:59:00* Test Item Value Reference Range Interpretation Comments GLUBED (test code = GLUBED) 150 mg/dL 74-106 H [facility] certified overlock sewing [facility]~ [id number] 16:08:00* Test Item Value Reference Range Interpretation Comments GLUBED (test code = GLUBED) 152 mg/dL 74-106 H Performed by certified overlock sewing machine operator at [facility] [id number] 11:38:00* Test Item Value Reference Range Interpretation Comments GLUBED (test code = GLUBED) 132 mg/dL 74-106 H Performed by certified overlock sewing machine operator at [facility] [id number] 08:10:00* Test Item Value Reference Range Interpretation Comments GLUBED (test code = GLUBED) 115 mg/dL 74-106 H Performed by certified overlock sewing machine operator at [facility] [id number] 06:18:00* Test Item Value Reference Range Interpretation Comments MAGNESIUM (test code = MAG) 1.6 mg/dL 1.8-2.4 L BASIC METABOLIC [id number] 06:18:00* Test Item Value Reference Range Interpretation Comments SODIUM (test code = NA) 140 mmol/L 136-145 N POTASSIUM (test code = K) 4.1 mmol/L 3.5-5.1 N CHLORIDE (test code = CL) 107.0 mmol/L 98-107 N CARBON DIOXIDE (test code = CO2) 25.0 mmol/L 21-32 N ANION GAP (test code = GAP) 12.1 10-20 N GLUCOSE (test code = GLU) 109 mg/dL 74-106 H BLOOD UREA NITROGEN (test code = BUN) 31 mg/dL 7-18 H GLOMERULAR FILTRATION RATE (test code = GFR) 33 mL/min >=60 Estimated GFR by using Modified MDRD formula.Chronic kidney disease is defined as either kidney damageor GFR <60 mL/min/1.73 m2 for >3 months. CREATININE (test code = CREAT) 1.50 mg/dL 0.55-1.02 H Note change in reference range due to change in reagent. BUN/CREATININE RATIO (test code = BUN/CREA) 20.5 10-20 H CALCIUM (test code = CA) 8.8 mg/dL 8.5-10.1 N BASIC METABOLIC [id number] 06:10:00* Test Item Value Reference Range Interpretation Comments SODIUM (test code = NA) 140 mmol/L 136-145 N POTASSIUM (test code = K) 4.1 mmol/L 3.5-5.1 N CHLORIDE (test code = CL) 107.0 mmol/L 98-107 N CARBON DIOXIDE (test code = CO2) mmol/L 21-32 ANION GAP (test code = GAP) 10-20 GLUCOSE (test code = GLU) mg/dL 74-106 BLOOD UREA NITROGEN (test code = BUN) mg/dL 7-18 GLOMERULAR FILTRATION RATE (test code = GFR) mL/min >=60 CREATININE (test code = CREAT) mg/dL 0.55-1.02 BUN/CREATININE RATIO (test code = BUN/CREA) 10-20 CALCIUM (test code = CA) mg/dL 8.5-10.1 [id number] 20:59:00* Test Item Value Reference Range Interpretation Comments GLUBED (test code = GLUBED) 126 mg/dL 74-106 H Performed by certified overlock sewing machine operator at [facility] [id number] 13:02:00* Test Item Value Reference Range Interpretation Comments GLUBED (test code = GLUBED) 116 mg/dL 74-106 H [facility] [id number] 08:18:00* Test Item Value Reference Range Interpretation Comments GLUBED (test code = GLUBED) 94 mg/dL 74-106 N Performed by certified overlock sewing machine operator at [facility] BASIC METABOLIC [id number] 07:44:00* Test Item Value Reference Range Interpretation Comments SODIUM (test code = NA) 141 mmol/L 136-145 N POTASSIUM (test code = K) 4.7 mmol/L 3.5-5.1 N CHLORIDE (test code = CL) 109.0 mmol/L 98-107 H CARBON DIOXIDE (test code = CO2) 23.0 mmol/L 21-32 N ANION GAP (test code = GAP) 13.7 10-20 N GLUCOSE (test code = GLU) 101 mg/dL 74-106 N BLOOD UREA NITROGEN (test code = BUN) 34 mg/dL 7-18 H GLOMERULAR FILTRATION RATE (test code = GFR) 33 mL/min >=60 Estimated GFR by using Modified MDRD formula.Chronic kidney disease is defined as either kidney damageor GFR <60 mL/min/1.73 m2 for >3 months. CREATININE (test code = CREAT) 1.50 mg/dL 0.55-1.02 H Note change in reference range due to change in reagent. BUN/CREATININE RATIO (test code = BUN/CREA) 22.4 10-20 H CALCIUM (test code = CA) 8.9 mg/dL 8.5-10.1 N [id number] 07:44:00* Test Item Value Reference Range Interpretation Comments MAGNESIUM (test code = MAG) 1.7 mg/dL 1.8-2.4 L FE W/TOTAL IRON BINDING CAP.2018-12-12 07:44:00* Test Item Value Reference Range Interpretation Comments SERUM IRON (test code = IRON) 36 ug/dL 50-175 L TOTAL IRON BINDING CAPACITY (test code = TIBC) 226 mcg/dL 250-450 L IRON SATURATION (test code = FESAT) 15.93 % 13-45 N [id number] 07:44:00* Test Item Value Reference Range Interpretation Comments FERRITIN (test code = SARAY) 40 ng/mL 8-388 N BASIC METABOLIC [id number] 07:22:00* Test Item Value Reference Range Interpretation Comments SODIUM (test code = NA) 141 mmol/L 136-145 N POTASSIUM (test code = K) 4.7 mmol/L 3.5-5.1 N CHLORIDE (test code = CL) 109.0 mmol/L 98-107 H CARBON DIOXIDE (test code = CO2) mmol/L 21-32 ANION GAP (test code = GAP) 10-20 GLUCOSE (test code = GLU) mg/dL 74-106 BLOOD UREA NITROGEN (test code = BUN) mg/dL 7-18 GLOMERULAR FILTRATION RATE (test code = GFR) mL/min >=60 CREATININE (test code = CREAT) mg/dL 0.55-1.02 BUN/CREATININE RATIO (test code = BUN/CREA) 10-20 CALCIUM (test code = CA) mg/dL 8.5-10.1 [id number] 07:22:00* Test Item Value Reference Range Interpretation Comments MAGNESIUM (test code = MAG) mg/dL 1.8-2.4 FE W/TOTAL IRON BINDING CAP.2018-12-12 07:22:00* Test Item Value Reference Range Interpretation Comments SERUM IRON (test code = IRON) ug/dL 50-175 TOTAL IRON BINDING CAPACITY (test code = TIBC) mcg/dL 250-450 IRON SATURATION (test code = FESAT) % 13-45 [id number] 07:22:00* Test Item Value Reference Range Interpretation Comments FERRITIN (test code = SARAY) ng/mL 8-388 PROTHROMBIN [id number] 05:36:00* Test Item Value Reference Range Interpretation Comments PROTHROMBIN TIME PATIENT (test code = PTP) 46.3 seconds 9.0-14.0 H INTERNATIONAL NORMAL RATIO (test code = INR) 3.9 0.8-1.2 H The therapeutic range for oral anticoagulant therapy [...] PATIENT ON ANTICOAGULANTS? YLIST ANTICOAGULANTS COUMADINTHROMBOPLASTIN TIME [id number] 05:36:00* Test Item Value Reference Range Interpretation Comments THROMBOPLASTIN TIME PARTIAL (test code = PTT) 48.4 seconds 25.0-36. 5 H IS PATIENT ON ANTICOAGULANTS? YLIST ANTICOAGULANTS COUMADINCBC W/AUTO DIFF 2018-12-12 05:31:00* Test Item Value Reference Range Interpretation Comments WHITE BLOOD CELL (test code = WBC) 5.6 K/mm3 4.5-12.5 N RED BLOOD CELL (test code = RBC) 3.68 mill/mm3 3.7-5.2 L HEMOGLOBIN (test code = HGB) 10.0 gram/dL 11.5-15.5 L HEMATOCRIT (test code = HCT) 32.3 % 36.0-46.0 L MEAN CELL VOLUME (test code = MCV) 87.8 fL 80-98 N MEAN CELL HGB (test code = MCH) 27.2 picogram 27.0-33.0 N MEAN CELL HGB CONCETRATION (test code = MCHC) 31.0 gram/dL 33.0-36. 0 L RED CELL DISTRIBUTION WIDTH (test code = RDW) 16.4 % 11.6-16. 2 H RED CELL DISTRIBUTION WIDTH SD (test code = RDW-SD) 52.9 fL 37 .0-51.0 H PLATELET COUNT (test code = PLT) 221 K/mm3 150-450 N MEAN PLATELET VOLUME (test code = MPV) 10.3 fL 6.7-11.0 N NEUTROPHIL % (test code = NT%) 58.1 % 39.0-69.0 N IMMATURE GRANULOCYTE % (test code = IG%) 0.7 % 0.0-5.0 N LYMPHOCYTE % (test code = LY%) 25.7 % 25.0-55.0 N MONOCYTE % (test code = MO%) 12.1 % 0.0-10.0 H EOSINOPHIL % (test code = EO%) 3.0 % 0.0-5.0 N BASOPHIL % (test code = BA%) 0.4 % 0.0-1.0 N NUCLEATED RBC % (test code = NRBC%) 0.0 % 0-0 N NEUTROPHIL # (test code = NT#) 3.25 K/mm3 1.8-7.7 N IMMATURE GRANULOCYTE # (test code = IG#) 0.04 x10 3/uL 0-0.03 H LYMPHOCYTE # (test code = LY#) 1.44 K/mm3 1.0-5.0 N MONOCYTE # (test code = MO#) 0.68 K/mm3 0-0.8 N EOSINOPHIL # (test code = EO#) 0.17 K/mm3 0.0-0.5 N BASOPHIL # (test code = BA#) 0.02 K/mm3 0.0-0.2 N NUCLEATED RBC # (test code = NRBC#) 0.00 K/mm3 0.0-0.1 N [id number] 21:06:00* Test Item Value Reference Range Interpretation Comments GLUBED (test code = GLUBED) 124 mg/dL 74-106 H Performed by certified overlock sewing machine operator at [facility] [id number] 17:08:00* Test Item Value Reference Range Interpretation Comments GLUBED (test code = GLUBED) 129 mg/dL 74-106 H [facility] certified overlock sewing machine [facility] [id number] 12:02:00* Test Item Value Reference Range Interpretation Comments GLUBED (test code = GLUBED) 104 mg/dL 74-106 N [facility]formed by certified overlock sewing machine operator [facility] BASIC METABOLIC [id number] 10:55:00* Test Item Value Reference Range Interpretation Comments SODIUM (test code = NA) 141 mmol/L 136-145 N POTASSIUM (test code = K) 4.6 mmol/L 3.5-5.1 N CHLORIDE (test code = CL) 110.0 mmol/L 98-107 H CARBON DIOXIDE (test code = CO2) 23.0 mmol/L 21-32 N ANION GAP (test code = GAP) 12.6 10-20 N GLUCOSE (test code = GLU) 131 mg/dL 74-106 H BLOOD UREA NITROGEN (test code = BUN) 42 mg/dL 7-18 H GLOMERULAR FILTRATION RATE (test code = GFR) 27 mL/min >=60 Estimated GFR by using Modified MDRD formula.Chronic kidney disease is defined as either kidney damageor GFR <60 mL/min/1.73 m2 for >3 months. CREATININE (test code = CREAT) 1.80 mg/dL 0.55-1.02 H Note change in reference range due to change in reagent. BUN/CREATININE RATIO (test code = BUN/CREA) 23.7 10-20 H CALCIUM (test code = CA) 8.5 mg/dL 8.5-10.1 N [id number] 10:55:00* Test Item Value Reference Range Interpretation Comments TROPONIN-I (test code = TROPI) 0.019 ng/mL 0-0.045 N COMMENTS TO CARTOON ANIMATOR: COLLECT 3 HOURS AFTER PREVIOUS SAMPLEBASIC METABOLIC [id number] 10:46:00* Test Item Value Reference Range Interpretation Comments SODIUM (test code = NA) 141 mmol/L 136-145 N POTASSIUM (test code = K) 4.6 mmol/L 3.5-5.1 N CHLORIDE (test code = CL) 110.0 mmol/L 98-107 H CARBON DIOXIDE (test code = CO2) mmol/L 21-32 ANION GAP (test code = GAP) 10-20 GLUCOSE (test code = GLU) mg/dL 74-106 BLOOD UREA NITROGEN (test code = BUN) mg/dL 7-18 GLOMERULAR FILTRATION RATE (test code = GFR) mL/min >=60 CREATININE (test code = CREAT) mg/dL 0.55-1.02 BUN/CREATININE RATIO (test code = BUN/CREA) 10-20 CALCIUM (test code = CA) 8.5 mg/dL 8.5-10.1 N [id number] 09:16:00* Test Item Value Reference Range Interpretation Comments GLUBED (test code = GLUBED) 134 mg/dL 74-106 H [facility] certified overlock sewing machine [facility] [id number] 09:16:00* Test Item Value Reference Range Interpretation Comments TROPONIN-I (test code = TROPI) 0.016 ng/mL 0-0.045 N COMMENTS TO CARTOON ANIMATOR: COLLECT 3 HOURS AFTER PREVIOUS SAMPLE [id number] 20:28:00* Test Item Value Reference Range Interpretation Comments GLUBED (test code = GLUBED) 147 mg/dL 74-106 H Performed by certified overlock sewing machine operator at [facility] [id number] 17:12:00* Test Item Value Reference Range Interpretation Comments GLUBED (test code = GLUBED) 105 mg/dL 74-106 N [facility] by certified overlock sewing machine operator [facility] LACTIC [id number] 16:25:00* Test Item Value Reference Range Interpretation Comments LACTIC ACID (test code = LACT) 1.2 MMOL/L 0.4-1.9 N URINALYSIS [id number] 15:11:00* Test Item Value Reference Range Interpretation Comments UA COLOR (test code = COLU) YELLOW YELLOW UA APPEARANCE (test code = APPU) SLIGHTLY CLOUDY CLEAR A UA GLUCOSE DIPSTICK (test code = DGLUU) norm mg/dL NEGATIVE UA BILIRUBIN DIPSTICK (test code = BILU) NEGATIVE mg/dL NEGATIVE UA KETONE DIPSTICK (test code = KETU) neg mg/dL NEGATIVE UA SPECIFIC GRAVITY (test code = SGU) 1.015 1.001-1.035 UA BLOOD DIPSTICK (test code = RITU) 10 (Trace) [place]/uL NEGATIVE A UA PH DIPSTICK (test code = BERKLEY) 5.0 5.0-8.0 UA PROTEIN DIPSTICK (test code = PROU) 15 (TRACE) mg/dL Neg-15 A UA UROBILINIOGEN DIPSTICK (test code = URO) 1 mg/dL 0.0-0.2 A UA NITRITE DIPSTICK (test code = MICHELLE) POSITIVE NEGATIVE UA LEUKOCYTE ESTERASE DIPSTICK (test code = LEUU) 25 Justus/uL (Tra ce) uL NEGATIVE A UA WBC (test code = WBCU) 3-5 per HPF 0-5 UA RBC (test code = RBCU) 0-3 per HPF 0-5 UA EPITHELIAL CELLS (test code = EPIU) Few (2-5/hpf) per HPF Few UA BACTERIA (test code = BACU) MANY per HPF NONE A Urine Source? Clean CatchPROTHROMBIN [id number] 15:11:00* Test Item Value Reference Range Interpretation Comments PROTHROMBIN TIME PATIENT (test code = PTP) > 110.0 seconds 9.0-13.0 H Results called to DR HODGES by [employer]CD 12/10/18 1510Read back (patient name and result) requested? Y INTERNATIONAL NORMAL RATIO (test code = INR) > 5.0 0.8-1.[address] called [address] HODGES by [employer]CD 12/10/18 1510Read back (patient name and result) requested? Y IS PATIENT ON ANTICOAGULANTS? YLIST ANTICOAGULANTS COUMADINTHROMBOPLASTIN TIME [id number] 15:11:00* Test Item Value Reference Range Interpretation Comments THROMBOPLASTIN TIME PARTIAL (test code = PTT) 61.0 seconds 25.5-34. 3 H Therapeutic Range for patients on Heparin Therapy is 2 to2.5 times their baseline PTT level. IS PATIENT ON ANTICOAGULANTS? YLIST ANTICOAGULANTS [id number] 15:11:00* Test Item Value Reference Range Interpretation Comments D-DIMER (test code = DDIMER) 294 ng/ml < 600 IS PATIENT ON ANTICOAGULANTS? YLIST ANTICOAGULANTS COUMADINURINALYSIS COMPLETE 2018-12-10 15:02:00* Test Item Value Reference Range Interpretation Comments UA COLOR (test code = COLU) YELLOW YELLOW UA APPEARANCE (test code = APPU) SLIGHTLY CLOUDY CLEAR A UA GLUCOSE DIPSTICK (test code = DGLUU) norm mg/dL NEGATIVE UA BILIRUBIN DIPSTICK (test code = BILU) NEGATIVE mg/dL NEGATIVE UA KETONE DIPSTICK (test code = KETU) neg mg/dL NEGATIVE UA SPECIFIC GRAVITY (test code = SGU) 1.015 1.001-1.035 UA BLOOD DIPSTICK (test code = RITU) 10 (Trace) [place]/uL NEGATIVE A UA PH DIPSTICK (test code = BERKLEY) 5.0 5.0-8.0 UA PROTEIN DIPSTICK (test code = PROU) 15 (TRACE) mg/dL Neg-15 A UA UROBILINIOGEN DIPSTICK (test code = URO) 1 mg/dL 0.0-0.2 A UA NITRITE DIPSTICK (test code = MICHELLE) POSITIVE NEGATIVE UA LEUKOCYTE ESTERASE DIPSTICK (test code = LEUU) 25 Justus/uL (Tra ce) uL NEGATIVE A UA WBC (test code = WBCU) per HPF 0-5 UA RBC (test code = RBCU) per HPF 0-5 UA EPITHELIAL CELLS (test code = EPIU) per HPF Few UA BACTERIA (test code = BACU) per HPF NONE Urine Source? Clean Catch- XR CHEST 1 [id number] 14:46:00 Name: LORENZO CHOWDARY [facility] : 1930 Age/S:88 /F [address] Unit#:[id number] Loc: [place] [address] Phys: Dori Hodges MD Dis Date: PHONE #: [phone] Status: REG ER FAX #: [phone] Exam Date: 12/10/2018 Reason: sOB EXAMS: CPT CODE: [id number] XR CHEST 1 V 80783 REASON FOR EXAM: sOB EXAM ORDER DATE: [...] and signed by: Patrick Mcdaniel M.D. CC: Michael Vegas MD; Slick Medina; Dori Hodges MD Technologist: Shantell Benton RDMS Trnscrpt Data: 12/10/2018 (7811) Amadou STREETER Orig Print D/T: S: 12/10/2018 (4161) PAGE 1 Signed Report - XR FOREARM 2 VIEWS [id number] 14:45:00 [facility] 1930 Age[facility]S:88 /F [address] Unit#:[id number] Loc: [place] [address] Phys: Dori Hodges MD Dis Date: PHONE #: [phone] Status: REG ER FAX #: [phone] Exam Date: 12/10/2018 Reason: ecchymosis eval for fx EXAMS: CPT CODE: [id number] XR [place] [address] [place] [address] REASON FOR EXAM: ecchymosis eval for fx EXAM ORDER DATE: 12/10/2018 1:34 PM Ordering M.Jonah.: Dori Hodges MD PROCEDURE: - XR FOREARM 2 VIEWS LT FINDINGS: 2 views of the left forearm were obtained. The osseous structures are unremarkable in size and shape. The joint spaces are maintained. No evidence of fracture. IMPRESSION: Unremarkable left radius and ulna at 1445 Reported and signed by: Patrick Mcdaniel M.D. CC: Michael Quiroga MD; Slick Medina; Dori Hernandez MD Technologist: Shantell Benton RDMS Trnscrpt Data: 12/10/2018 (4920) Redd Orig Print D/T: S: 12/10/2018 (0630) PAGE 1 Signed Report LACTIC [id number] 14:36:00* Test Item Value Reference Range Interpretation Comments LACTIC ACID (test code = LACT) 2.2 MMOL/L 0.4-1.9 HH Results called to [id number] Terry[employer].CD 12/10/18 1435Critical results verified and read back by Nurse? Y COMPREHENSIVE METABOLIC [id number] 14:26:00* Test Item Value Reference Range Interpretation Comments SODIUM (test code = NA) 139 mmol/L 136-145 N POTASSIUM (test code = K) 4.9 mmol/L 3.5-5.1 N CHLORIDE (test code = CL) 106 mmol/L 101-109 N CARBON DIOXIDE (test code = CO2) 22.1 mmol/L 21-32 N ANION GAP (test code = GAP) 16 mmol/L 10-20 N GLUCOSE (test code = GLU) 153 mg/dL 74-106 H BLOOD UREA NITROGEN (test code = BUN) 53 mg/dL 3-21 H CREATININE (test code = CREAT) 2.06 mg/dL 0.55-1.3 H BUN/CREATININE RATIO (test code = BUN/CREA) 25.7 10-20 H TOTAL PROTEIN (test code = PROT) 6.2 g/dL 6.5-8.4 L ALBUMIN (test code = ALB) 2.9 g/dL 3.4-4.8 L GLOBULIN (test code = GLOB) 3.3 G/DL 1-10 N ALBUMIN/GLOBULIN RATIO (test code = A/G) 0.88 RATIO 0.75-1.50 N CALCIUM (test code = CA) 8.6 mg/dL 8.4-10.2 N BILIRUBIN TOTAL (test code = BILT) 0.50 mg/dL 0.0-1.0 N SGOT/AST (test code = AST) 25 U/L 6-32 N SGPT/ALT (test code = ALT) 12 U/L 12-78 N N ote: Change in REFERENCE RANGE due to new reagent method. ALKALINE PHOSPHATASE TOTAL (test code = ALKP) 114 U/L 38-126 N [id number] 14:26:00* Test Item Value Reference Range Interpretation Comments MAGNESIUM (test code = MAG) 1.5 mg/dL 1.6-2.3 L CPK-MB [id number] 14:26:00* Test Item Value Reference Range Interpretation Comments CREATINE KINASE (CK) (test code = CK) 38 U/L 26-192 N CKMB (test code = CKMBT) <0.5 ng/mL 0.0-5.0 N RELATIVE % INDEX (test code = REL%) 1.3 % [id number] 14:26:00* Test Item Value Reference Range Interpretation Comments TROPONIN-I (test code = TROPI) <0.015 ng/mL 0.00-0.056 N B-TYPE NATRIURETIC [id number] 14:10:00* Test Item Value Reference Range Interpretation Comments B-TYPE NATRIURETIC PEPTIDE (test code = BNP) 68.8 pg/mL 0-100 N PROTHROMBIN [id number] 14:05:00* Test Item Value Reference Range Interpretation Comments PROTHROMBIN TIME PATIENT (test code = PTP) seconds 9.0-13.0 INTERNATIONAL NORMAL RATIO (test code = INR) 0.8-1.2 IS PATIENT ON ANTICOAGULANTS? YLIST ANTICOAGULANTS COUMADINTHROMBOPLASTIN TIME [id number] 14:05:00* Test Item Value Reference Range Interpretation Comments THROMBOPLASTIN TIME PARTIAL (test code = PTT) seconds 25.5-34. 3 IS PATIENT ON ANTICOAGULANTS? YLIST ANTICOAGULANTS [id number] 14:05:00* Test Item Value Reference Range Interpretation Comments D-DIMER (test code = DDIMER) 294 ng/ml < 600 IS PATIENT ON ANTICOAGULANTS? YLIST ANTICOAGULANTS COUMADINCOMPREHENSIVE METABOLIC [id number] 14:03:00* Test Item Value Reference Range Interpretation Comments SODIUM (test code = NA) 139 mmol/L 136-145 N POTASSIUM (test code = K) 4.9 mmol/L 3.5-5.1 N CHLORIDE (test code = CL) 106 mmol/L 101-109 N CARBON DIOXIDE (test code = CO2) 22.1 mmol/L 21-32 N ANION GAP (test code = GAP) 16 mmol/L 10-20 N GLUCOSE (test code = GLU) 153 mg/dL 74-106 H BLOOD UREA NITROGEN (test code = BUN) 53 mg/dL 3-21 H CREATININE (test code = CREAT) 2.06 mg/dL 0.55-1.3 H BUN/CREATININE RATIO (test code = BUN/CREA) 25.7 10-20 H TOTAL PROTEIN (test code = PROT) gram/dL 6.4-8.2 ALBUMIN (test code = ALB) g/dL 3.4-5.0 GLOBULIN (test code = GLOB) g/dL 2.7-4.2 ALBUMIN/GLOBULIN RATIO (test code = A/G) 0.75-1.50 CALCIUM (test code = CA) 8.6 mg/dL 8.4-10.2 N BILIRUBIN TOTAL (test code = BILT) mg/dL 0.2-1.2 SGOT/AST (test code = AST) IUnit/L 15-37 SGPT/ALT (test code = ALT) U/L 10-69 ALKALINE PHOSPHATASE TOTAL (test code = ALKP) IUnit/L 45-117 [id number] 14:03:00* Test Item Value Reference Range Interpretation Comments MAGNESIUM (test code = MAG) mg/dL 1.8-2.4 CPK-MB [id number] 14:03:00* Test Item Value Reference Range Interpretation Comments CREATINE KINASE (CK) (test code = CK) IUnit/L 26-208 CKMB (test code = CKMBT) ng/mL 0-6.0 RELATIVE % INDEX (test code = REL%) % [id number] 14:03:00* Test Item Value Reference Range Interpretation Comments TROPONIN-I (test code = TROPI) ng/mL 0-0.045 CBC W/AUTO [id number] 13:54:00* Test Item Value Reference Range Interpretation Comments WHITE BLOOD CELL (test code = WBC) 5.7 K/mm3 4.5-12.5 N RED BLOOD CELL (test code = RBC) 3.61 mill/mm3 3.7-5.2 L HEMOGLOBIN (test code = HGB) 9.8 gram/dL 11.5-15.5 L HEMATOCRIT (test code = HCT) 32.3 % 36.0-46.0 L MEAN CELL VOLUME (test code = MCV) 89.5 fL 80-98 N MEAN CELL HGB (test code = MCH) 27.1 picogram 27.0-33.0 N MEAN CELL HGB CONCETRATION (test code = MCHC) 30.3 gram/dL 33.0-36. 0 L RED CELL DISTRIBUTION WIDTH (test code = RDW) 15.9 % 11.6-16. 2 N RED CELL DISTRIBUTION WIDTH SD (test code = RDW-SD) 52.5 fL 37 .0-51.0 H PLATELET COUNT (test code = PLT) 214 K/mm3 150-450 N MEAN PLATELET VOLUME (test code = MPV) 9.5 fL 6.7-11.0 N NEUTROPHIL % (test code = NT%) 61.2 % 39.0-69.0 N LYMPHOCYTE % (test code = LY%) 24.0 % 25.0-55.0 L MONOCYTE % (test code = MO%) 11.9 % 0.0-10.0 H EOSINOPHIL % (test code = EO%) 1.8 % 0.0-5.0 N BASOPHIL % (test code = BA%) 0.7 % 0.0-1.0 N NEUTROPHIL # (test code = NT#) 3.49 K/mm3 1.8-7.7 N LYMPHOCYTE # (test code = LY#) 1.37 K/mm3 1.0-5.0 N MONOCYTE # (test code = MO#) 0.68 K/mm3 0-0.8 N EOSINOPHIL # (test code = EO#) 0.10 K/mm3 0.0-0.5 N BASOPHIL # (test code = BA#) 0.04 K/mm3 0.0-0.2 N MANUAL DIFF REQUIRED (test code = MDIFF) NO [[facility]] PROTHROMBIN [id number] 07:12:00* Test Item Value Reference Range Interpretation Comments INR (test code = INR) 2.5 Refere nce Range 0.9-1.1Moderate-intensity Warfarin Therapy 2.0-3.0Higher-intensity Warfarin Therapy 3.0-4.0 PT (test code = PT) 24.4 {sec} 9.0-11.5 For more information on this test, go to:[email or web address]/[email or web address] [facility]] PROTHROMBIN [id number] 07:05:00* Test Item Value Reference Range Interpretation Comments INR (test code = INR) 3.7 Refere nce Range 0.9-1.1Moderate-intensity Warfarin Therapy 2.0-3.0Higher-intensity Warfarin Therapy 3.0-4.0 PT (test code = PT) 35.5 {sec} 9.0-11.5 For more information on this test, go to:[email or web address] [facility]] PROTHROMBIN [id number] 06:50:00* Test Item Value Reference Range Interpretation Comments INR (test code = INR) 2.8 Refere nce Range 0.9-1.1Moderate-intensity Warfarin Therapy 2.0-3.0Higher-intensity Warfarin Therapy 3.0-4.0 PT (test code = PT) 27.1 {sec} 9.0-11.5 For more information on this test, go to:http://[employer]/faq/[email or web address] [facility]] PROTHROMBIN [id number] 07:25:00* Test Item Value Reference Range Interpretation Comments INR (test code = INR) 2.4 Refere nce Range 0.9-1.1Moderate-intensity Warfarin Therapy 2.0-3.0Higher-intensity Warfarin Therapy 3.0-4.0 PT (test code = PT) 23.6 {sec} 9.0-11.5 For more information on this test, go to:http://[employer]/faq/[email or web address] [facility]] PROTHROMBIN [id number] 07:37:00* Test Item Value Reference Range Interpretation Comments INR (test code = INR) 1.7 Refere nce Range 0.9-1.1Moderate-intensity Warfarin Therapy 2.0-3.0Higher-intensity Warfarin Therapy 3.0-4.0 PT (test code = PT) 17.2 {sec} 9.0-11.5 For more information on this test, go to:http://[employer]/faq/LXA391 [facility]] PROTHROMBIN [id number] 07:46:00* Test Item Value Reference Range Interpretation Comments INR (test code = INR) 2.1 Refere nce Range 0.9-1.1Moderate-intensity Warfarin Therapy 2.0-3.0Higher-intensity Warfarin Therapy 3.0-4.0 PT (test code = PT) 21.1 {sec} 9.0-11.5 For more information on this test, go to:http://[employer]/faq/[email or web address] [facility]] PROTHROMBIN [id number] 07:35:00* Test Item Value Reference Range Interpretation Comments INR (test code = INR) 1.5 Refere nce Range 0.9-1.1Moderate-intensity Warfarin Therapy 2.0-3.0Higher-intensity Warfarin Therapy 3.0-4.0 PT (test code = PT) 14.8 {sec} 9.0-11.5 For more information on this test, go to:[email or web address] [facility]] PROTHROMBIN [id number] 07:11:00* Test Item Value Reference Range Interpretation Comments INR (test code = INR) 1.8 Refere nce Range 0.9-1.1Moderate-intensity Warfarin Therapy 2.0-3.0Higher-intensity Warfarin Therapy 3.0-4.0 PT (test code = PT) 18.5 {sec} 9.0-11.5 For more information on this test, go to:[email or web address] [facility]] PROTHROMBIN [id number] 07:10:00* Test Item Value Reference Range Interpretation Comments INR (test code = INR) 2.1 Refere nce Range 0.9-1.1Moderate-intensity Warfarin Therapy 2.0-3.0Higher-intensity Warfarin Therapy 3.0-4.0 PT (test code = PT) 21.2 {sec} 9.0-11.5 For more information on this test, go to:[email or web address] [facility]] PROTHROMBIN [id number] 07:15:00* Test Item Value Reference Range Interpretation Comments INR (test code = INR) 1.8 Refere nce Range 0.9-1.1Moderate-intensity Warfarin Therapy 2.0-3.0Higher-intensity Warfarin Therapy 3.0-4.0 PT (test code = PT) 18.3 {sec} 9.0-11.5 For more information on this test, go to:[email or web address] [facility]] PROTHROMBIN [id number] 07:13:00* Test Item Value Reference Range Interpretation Comments INR (test code = INR) 1.4 Refere nce Range 0.9-1.1Moderate-intensity Warfarin Therapy 2.0-3.0Higher-intensity Warfarin Therapy 3.0-4.0 PT (test code = PT) 14.5 {sec} 9.0-11.5 For more information on this test, go to:[email or web address] [facility]] PROTHROMBIN [id number] 07:15:00* Test Item Value Reference Range Interpretation Comments INR (test code = INR) 1.3 Refere nce Range 0.9-1.1Moderate-intensity Warfarin Therapy 2.0-3.0Higher-intensity Warfarin Therapy 3.0-4.0 PT (test code = PT) 14.0 {sec} 9.0-11.5 For more information on this test, go to:[email or web address] [facility]] PROTHROMBIN [id number] 07:15:00* Test Item Value Reference Range Interpretation Comments INR (test code = INR) 3.1 Refere nce Range 0.9-1.1Moderate-intensity Warfarin Therapy 2.0-3.0Higher-intensity Warfarin Therapy 3.0-4.0 PT (test code = PT) 31.5 {sec} 9.0-11.5 For more information on this test, go to:[email or web address] [facility] [id number] 15:00:005.1Mlynne Velázquez
--- NOTE | 2020-01-27 11:25 | Emergency Department Note ---
History of Present Illnes History of Present Illness Chief Complaint: General Medicine Complaints History of Present Illness This is a 89 year old female Chief Complaint Comment Patient in from [facility] via EMS with reports of a low sodium level that was found on routine blood work done at the facility. Patient doesn't offer any acute complaint at the moment but does report some pain to her right hip and arm which she says is not new. Historian: Patient, Labor Relations Manager/EMS Arrival Mode: [facility] Commercial [employer] Required: No Onset (how long ago): unknown Location: None Quality: None Radiation: Reports non-radiation Severity: unable to specify Onset quality: unable to specify Duration (how long): hour(s) (1) Timing of current episode: unable to specify Progression: unchanged Chronicity: new Context: Denies recent illness, Denies recent surgery Relieving factors: none Exacerbating factors: none Associated symptoms: Reports denies other symptoms Treatments prior to arrival: none Past Medical/Family History Physician Review I have reviewed the patient's past medical and family history. Any updates have been documented here. Past Medical History Recent Fever: No Clinical Suspicion of Infectio: No New/Unexplained Change in Ment: No Past Medical History: Hypertension, Diabetes, CHF, Hyperlipedemia, Chronic Kidney Disease Other Medical History: Osteoarthritis Past Surgical History: Cholecysctectomy, Appendectomy, Hysterectomy, Back Surgery, Cataract Removal Other Surgery: bilateral foot surgery Social History Smoking Cessation: Never Smoker Counseling Performed: No Alcohol Use: None Any Illegal Drug Use: No Other Last Tetanus: unknown Any Pre-Existing Lines (PICC,: Yes (right UE midline) Review of Systems Review of Systems Constitutional: Reports no symptoms EENTM: Reports no symptoms Cardiovascular: Reports no symptoms Respiratory: Reports no symptoms Gastrointestinal: Reports no symptoms Genitourinary: Reports no symptoms Musculoskeletal: Reports no symptoms Integumentary: Reports no symptoms Neurological: Reports no symptoms Psychological: Reports no symptoms Endocrine: Reports no symptoms Hematological/Lymphatic: Reports no symptoms Physical Exam Related Data Allergies: Coded Allergies: diltiazem (Verified Allergy, Severe, 01/03/19) cortisone (Verified Allergy, Unknown, HEART PALPITATIONS, 01/03/19) Triage Vital Signs Vital Signs Date Time Temp Pulse Resp B/P (MAP) Pulse Ox O2 Delivery O2 Flow Rate FiO2 01/27/20 10:47 97.5 78 16 144/69 100 Room Air Vital signs reviewed: Yes Physical Exam CONSTITUTIONAL Constitutional: Present well-developed, Present well-nourished HENT HENT: Present normocephalic, Present atraumatic, Present oropharynx clear/moist, Present nose normal HENT L/R: Present left ext ear normal, Present right ext ear normal EYES Eyes: Reports PERRL, Reports conjunctivae normal NECK Neck: Present ROM normal PULMONARY Pulmonary: Present effort normal, Present breath sounds normal CARDIOVASCULAR Cardiovascular: Present regular rhythm, Present heart sounds normal, Present capillary refill normal, Present normal rate GASTROINTESTINAL Abdominal: Present soft, Present nontender, Present bowel sounds normal GENITOURINARY Genitourinary: Present exam deferred SKIN Skin: Present warm, Present dry MUSCULOSKELETAL Musculoskeletal: Present ROM normal NEUROLOGICAL Neurological: Present alert, Present oriented x 3, Present no gross motor or sensory deficits PSYCHOLOGICAL Psychological: Present mood/affect normal, Present judgement normal Results Laboratory Lab results reviewed: Yes Procedures 12 Lead ECG Interpretation ECG Interpretation : Commercial Lender: Interpreted by ED physician Date: Jan 27, 2020 Rhythm: sinus rhythm Rate: normal QRS axis: normal ST segments normal: Yes T waves normal: Yes Clinical Impression: non-specific ECG Assessment & Plan Medical Decision Making MDM 89 y.o f presents for Hyponatremia of 118. W/u shows NA 137. Discussed patient with her PCP Dr. Valeria Quiroga and will DC back to longterm. Appropriate for DC. Reassessment Reassessment time: 11:24 Reassessment Well appearing, NAD Assessment & Plan Final Impression: (1) Laboratory test Depart Disposition: HOME, SELF-CARE Last Vital Signs Date Time Temp Pulse Resp B/P (MAP) Pulse Ox O2 Delivery O2 Flow Rate FiO2 01/27/20 10:47 97.5 78 16 144/69 100 Room Air Home Meds Reported Medications Spironolactone (SPIRONOLACTONE) 25 Mg Tablet, 50 MG PO DAILY, #60 TAB 01/05/19 Pioglitazone Hcl (PIOGLITAZONE HCL) 45 Mg Tablet, 30 MG PO DAILY, #30 TAB 01/05/19 Metoprolol Tartrate (METOPROLOL TARTRATE) 50 Mg Tablet, 100 MG PO DAILY, TAB 01/05/19 Isosorbide Mononitrate (ISOSORBIDE MONONITRATE ER) 30 Mg Tab.er.24h, 60 MG PO DAILY, #30 TAB 01/05/19 Furosemide (FUROSEMIDE) 40 Mg Tablet, 20 MG PO Daily, #30 TAB 01/05/19 Apixaban (Eliquis) 2.5 Mg Tablet, BID 01/05/19 Medications in the ED Sodium Chloride 500 ml @ 0 mls/hr Q0M STAT IV ; Start 01/27/20 at 10:49; Stop 01/27/20 at 10:51; Status DC RAJ BRYANT MD Jan 27, 2020 11:25
[2020-01-27 11:34] LABS: BASOPHILS % 0.4 % (0.0-1.0); EOSINOPHILS # (AUTO) 0.3 (0.0-0.4); EOSINOPHILS % 4.1 % (0.0-6.0); HEMATOCRIT 35.8 % (34.2-44.1); HEMOGLOBIN 10.9 g/dL (12.0-16.0); LYMPHOCYTES # (AUTO) 1.3 (1.0-3.2); LYMPHOCYTES % 18.6 % (18.0-39.1); MEAN CORPUSCULAR HEMOGLOBIN 26.1 pg (28-32); MEAN CORPUSCULAR HGB CONC 30.4 g/dL (31-35); MEAN CORPUSCULAR VOLUME 85.6 fL (81-99); MONOCYTES # (AUTO) 0.9 (0.2-0.8); MONOCYTES % 12.8 % (4.4-11.3); NEUTROPHILS # (AUTO) 4.5 (2.1-6.9); NEUTROPHILS % 63.8 % (38.7-80.0); PLATELET COUNT 157 x10e3/uL (140-360); RED BLOOD COUNT 4.18 x10e6/uL (3.6-5.1); RED CELL DISTRIBUTION WIDTH 16.1 % (11.7-14.4)
[2020-01-27 11:55] LABS: BILIRUBIN,URINE NEGATIVE (NEGATIVE); CLARITY,URINE CLEAR (CLEAR); COLOR,URINE YELLOW (YELLOW); KETONES,URINE NEGATIVE (NEGATIVE); LEUKOCYTE ESTERASE ,URINE NEGATIVE (NEGATIVE); NITRITE,URINE NEGATIVE (NEGATIVE); PROTEIN,URINE DIPSTICK 1+ (NEGATIVE); URINE UROBILINOGEN 0.2 mg/dL (0.2 - 1)
[2020-01-27 11:56] LABS: ALBUMIN 2.8 g/dL (3.5-5.0); ALBUMIN/GLOBULIN RATIO 0.7 (0.8-2.0); CALCIUM 9.5 mg/dL (8.4-10.2); CREATININE, SERUM 1.93 mg/dL (0.57-1.11)
[2020-01-27 12:06] LABS: AMORPHOUS SEDIMENT,URINE FEW (FEW); BACTERIA,URINE FEW /HPF; EPITHELIAL CELLS,URINE FEW /LPF; MUCUS,URINE FEW (RARE); RBC,URINE 0-5 /HPF (0-5); WBC,URINE (MAN) 0-5 /HPF (0-5)
[2020-01-27 12:07] LABS: HYALINE CASTS 0-1 (0-1)
[2020-01-27 12:11] LABS: SODIUM,URINE 95 mmol/L
== END 2020-01-27 14:43 | disposition home or self-care (01) ==
LOC: ER 11:01
DX: E87.1 Hypo-osmolality and hyponatremia (principal); E11.22 Type 2 diabetes mellitus with diabetic chronic kidney disease; I12.9 Hypertensive chronic kidney disease with stage 1 through stage 4 chronic kidney disease, or unspecified chronic kidney disease; N18.9 Chronic kidney disease, unspecified; E78.5 Hyperlipidemia, unspecified
CPT/HCPCS: 36415; 80053; 81001; 83935; 84300; 85025; 93005; 99284; J7040